=== PATIENT | female | born 1935 | race Caucasian/White ===

== ENCOUNTER 2017-05-03 15:43 | Emergency (ER) | payer OTHER ==
[~2017-05-03] VITALS: Ht 157.5 cm; Wt 136.1 kg
[~2017-05-03 15:43] MED LIST: ACETAMINOPHEN325 M1 PO; AFRIN15 ML NS; AMLODIPINE BESY10 MG PO; DUONEB 2.5-0.5 M3 ML INH; K-DUR 20 MEQ T20 MEQ PO; KEFLEX500 MG PO; LASIX 40 MG TAB40 M1 PO; LEVAQUIN 250 M250 MG PO; LEVOTHYROXINE 0.1 MG PO; LITHIUM CARBON150 MG PO; METOPROLOL SUCC50 MG PO; PANTOPRAZOLE SO40 M1 PO; PREDNISONE 10 M10 MG PO; TRAZODONE HCL50 MG PO; VITAMIN D2000 UNIT PO
[2017-05-03] MEDS ORDERED: ULTRAM50 MG PO (17:56)
[2017-05-03] MEDS ORDERED: NAPROSYN500 MG PO (17:56)
[2017-05-03 20:22] VITALS: BP 128/71
[2017-07-08] MEDS ORDERED: PROTONIX 20 MG20 M1 PO (15:46)
[2017-07-08] MEDS ORDERED: CLEOCIN HCL150 MG PO (15:47)
[2017-07-08] MEDS ORDERED: VITAMIN B-12500 MCG PO (15:47)
[2017-07-11] MEDS ORDERED: KEFLEX500 M1 PO (12:54)
[2017-07-18] MEDS ORDERED: RESTORIL7.5 MG PO (12:26)
[2017-07-18] MEDS ORDERED: TRILEPTAL 300300 MG PO (12:26)
[2017-07-18] MEDS ORDERED: CEFUROXIME500 MG PO (12:26)
[2017-07-18] MEDS ORDERED: MIRALAX17 GM PO (12:26)
[2017-10-03] MEDS ORDERED: PREDNISONE 10 M10 MG PO (13:38)
[2017-10-03] MEDS ORDERED: LEVAQUIN 750 M750 MG PO (13:41)
[2017-11-01] MEDS ORDERED: EYE HEALTH ADU1 EACH PO (16:15)
== END 2017-05-03 20:05 | disposition home or self-care (01) ==
LOC: ER 15:43
DX: M25.572 Pain in left ankle and joints of left foot (principal); E03.9 Hypothyroidism, unspecified; I50.9 Heart failure, unspecified; Z88.0 Allergy status to penicillin; Z88.2 Allergy status to sulfonamides

== ENCOUNTER 2017-05-16 11:29 | Inpatient (IN) | payer OTHER ==
[~2017-05-16] VITALS: Ht 157.5 cm; Wt 136.2 kg
--- NOTE | ~2017-05-16 | EKG ---
[address] [place] [address] ELECTROCARDIOGRAM REPORT Name: YUNIOR BEGUM Room #: 201-P ADM IN M.R.#: [id number] Admission: 05/16/17 Attend Phys: Rudy Whitfield MD Discharge: Date of : 31 Report #: [id number] THIS REPORT FOR: //name// [facility] ED Test Date: 2017-05-16 Test Time: 12:20:26 Pat Name: YUNIOR BEGUM Department: Room: 201 Gender: F Logistics Supervisor: TAI : 1935 Requested By: Kelvin Arteaga Order Number: [id number] MD: Neil Garrido Measurements Intervals [place] Rate: 149 P: OK: QRS: 66 QRSD: 94 T: -68 QT: 294 QTc: 463 Interpretive Statements Atrial fibrillation with rapid V-rate Paired ventricular premature complexes Low voltage, precordial leads Nonspecific ST and T wave abnormality Compared to ECG 03/27/2016 13:48:34 Atrial fibrillation has replaced sinus rhythm Electronically Signed On 05-16-2017 17:41:18 CDT by Neil Garrido [email or web address] <ELECTRONICALLY SIGNED> By: Neil Garrido MD, [facility] 05/16/17 1741 1220 1220 Neil Garrido MD, [facility] /EPI
--- NOTE | ~2017-05-16 | 2DMMODE ---
[facility] [address] [place] [address] 2 D/M-MODE ECHOCARDIOGRAM Name: YUNIOR BEGUM Room #: 170-11 ADM IN .R.#: [id number] Admission: 05/16/17 Attend Phys: Rudy Whitfield MD Discharge: Date of : 31 Date of Service: 05/16/17 1543 Report #: [id number] THIS REPORT FOR: //name// APPROVED REPORT Study performed: 05/16/2017 14:43:34 EXAM: Comprehensive 2D, Doppler, and color-flow Echocardiogram Patient Location: ER Room #: 201 Status: routine BSA: 2.27 HR: 93 bpm BP: 146/61 mmHg Rhythm: NSR Other Information Study Quality: Fair Indications History of Afib. Echo Enhancing Agent Indication: Endocardial border delineation Agent(s) / Amount(s) Used: Optison 4 cc 2D Dimensions RVDd: 33.01 mm LVEF(%): 52.30 (>50%) IVSd: 11.05 (7-11mm) LVOT Diam: 19.07 (18-24mm) LVDd: 43.85 mm PWd: 10.83 (7-11mm) LVDs: 32.17 (25-40mm) Aortic Root: 29.70 mm Gurrola's LVEF: 52.30 % Volumes Left Atrial Volume (Systole) Single Plane 4CH: 53.98 mL Single Plane 2CH: 72.20 mL Aortic Valve AoV Peak J Carlos.: 2.28 m/s AO Peak Gr.: 20.82 mmHg LVOT Max P.04 mmHg AO Mean Gr.: 12.11 mmHg AO V2 Mean: 1.69 m/s LVOT Max V: 1.12 m/s AO V2 VTI: 42.68 cm [facility] [place] [address] 2 D/M-MODE ECHOCARDIOGRAM Name: YUNIOR BEGUM Room #: 170[facility] ADM IN .R.#: [id number] Admission: 05/16/17 Attend Phys: Rudy Whitfield MD Discharge: Date of : 31 Date of Service: 05/16/17 1543 Report #: [id number] RUSSELL Vmax: 1.40 cm2 Mitral Valve E/A Ratio: 0.8 MV Decel. Time: 269.22 ms MV E Max J Carlos.: 0.81 m/s MV A J Carlos.: 1.06 m/s MV PHT: 78.07 ms IVRT: 92.27 ms Pulmonary Valve PV Peak J Carlos.: 1.27 m/s PV Peak Gr.: 6.45 mmHg Pulmonary Vein P Vein S: 0.57 m/s P Vein A: 0.27 m/s P Vein D: 0.31 m/s P Vein A Dur.: 93.4 msec P Vein S/D Ratio: 1.84 Tricuspid Valve TR Peak J Carlos.: 2.32 m/s RAP Estimate: 5.00 mmHg TR Peak Gr.: 21.51 mmHg PA Pressure: 27.00 mmHg Left Ventricle The left ventricle is normal size. Regional wall motion is not well visualized but grossly normal. Borderline concentric left ventricular hypertrophy. Left ventricular systolic function is normal. LVEF is 60-65%. Mild diastolic dysfunction is present (impaired relaxation pattern). Right Ventricle The right ventricle is normal size. The right ventricular systolic function is normal. Atria Left atrium appears mildly dilated. Right atrium is at the upper limits of normal. Right atrium is small. Aortic Valve The aortic valve is not well visualized but appears calcified. Velocities indicate mild arotic stenosis with a peak pressure gradient of 21mmHg and a mean of 12mmHg. Mitral Valve Mitral valve leaflets are mildly calcified. Mild mitral annular calcification. Mild mitral regurgitation. No evidence of mitral valve [address] [address] 2 D/M-MODE ECHOCARDIOGRAM Name: YUNIOR BEGUM Room #: [facility] ADM IN [facility]#: [id number] Admission: 05/16/17 Attend Phys: Rudy Whitfield MD Discharge: Date of : 33 Date of Service: 05/16/17 1543 Report #: [id number] stenosis. Pulmonic Valve The pulmonary valve is normal in structure. Trace pulmonic regurgitation. Estimated PAP is 25-30mmHg. Great Vessels The aortic root is normal in size. Ascending aorta is not well visualized. IVC is normal in size and collapses >50% with inspiration. Pericardium Trace to small pericardial fluid noted anteriorly. <Conclusion> The left ventricle is normal size. LVEF is 60-65%. Left atrium appears mildly dilated. The aortic valve is not well visualized but appears calcified. Velocities indicate mild arotic stenosis with a peak pressure gradient of 21mmHg and a mean of 12mmHg. Mitral valve leaflets are mildly calcified. Mild mitral annular calcification. Mild mitral regurgitation. The pulmonary valve is normal in structure. Trace pulmonic regurgitation. Estimated PAP is 25-30mmHg. Trace to small pericardial fluid noted anteriorly. <ELECTRONICALLY SIGNED> By: Leon Holliday MD 05/16/17 1543 1543 1543 Leon Holliday MD /INF
[~2017-05-16 11:29] MED LIST changes: +NAPROSYN500 MG PO; +ULTRAM50 MG PO
[2017-05-16 11:34] VITALS: BP 148/73
[2017-05-16 12:44] LABS: HEMATOCRIT 44.9 % (37.0-47.0); HEMOGLOBIN 14.8 gm/dL (12.0-15.0); MCH 29.3 pg (26.0-34.0); MCHC 33.1 g/dL (28.0-37.0); MCV 88.5 fL (80.0-100.0); PLATELET COUNT 262 thou/uL (150-400); RBC 5.07 mil/uL (4.20-5.00); RDW 15.6 % (10.5-14.5); WBC 8.1 thou/uL (4.0-11.0)
[2017-05-16 12:54] LABS: CALCIUM 10.1 mg/dL (8.5-10.1); CREATININE 0.9 mg/dL (0.6-1.0); POTASSIUM 3.8 mmol/L (3.5-5.1)
[2017-05-16 13:01] LABS: ALBUMIN 2.5 g/dL (3.4-5.0); TOTAL BILIRUBIN 0.6 mg/dL (<0.1-1.0); TOTAL PROTEIN 7.2 g/dL (6.4-8.2)
[2017-05-16 13:17] LABS: MAGNESIUM 1.7 mg/dL (1.8-2.4); TROPONIN-I < 0.04 ng/mL (<0.06)
[2017-05-16 13:25] LABS: ATYPICAL LYMPHS 1 %
[2017-05-16 13:27] LABS: ABSOLUTE NEUTROPHILS 5.9 thou/uL (1.4-8.2)
[2017-05-16 14:04] VITALS: BP 146/61
[2017-05-16 15:00] LABS: HDL CHOLESTEROL 43 mg/dL (>40); TRIGLYCERIDE 117 mg/dL (<150); VLDL 23 mg/dL (<40)
[2017-05-16 15:25] LABS: FOLIC ACID 12.9 ng/mL (8.6-58.9)
[2017-05-16 15:34] LABS: CHOLESTEROL 224 mg/dL (<200); TC:HDL 5.2 Ratio (Not establshd)
[2017-05-16 15:35] LABS: LDL CHOLESTEROL 158 mg/dL (<100)
[2017-05-16 16:08] VITALS: BP 146/61
[2017-05-16 19:10] VITALS: BP 109/56
[2017-05-17 03:14] LABS: GLYCOHEMOGLOBIN (HGB A1C) 5.9 % (4.8-5.6)
[2017-05-17 05:23] VITALS: BP 116/60
[2017-05-17 07:41] VITALS: BP 98/57
[2017-05-17 12:03] VITALS: BP 116/57
[2017-05-17 15:14] VITALS: BP 123/57
[2017-05-17 16:03] VITALS: BP 123/57
[2017-05-17 19:16] VITALS: BP 98/42
[2017-05-18 03:52] LABS: HEMATOCRIT 37.7 % (37.0-47.0); MCH 29.1 pg (26.0-34.0); MCHC 33.2 g/dL (28.0-37.0); MCV 87.8 fL (80.0-100.0); RBC 4.29 mil/uL (4.20-5.00); RDW 15.2 % (10.5-14.5); WBC 5.4 thou/uL (4.0-11.0)
[2017-05-18 03:57] LABS: HEMOGLOBIN 12.5 gm/dL (12.0-15.0)
[2017-05-18 04:10] LABS: CALCIUM 9.5 mg/dL (8.5-10.1); CREATININE 0.8 mg/dL (0.6-1.0); POTASSIUM 4.1 mmol/L (3.5-5.1)
[2017-05-18 04:24] VITALS: BP 113/71
[2017-05-18 07:15] VITALS: BP 122/61
[2017-05-18 11:40] VITALS: BP 133/72
[2017-05-18 17:21] VITALS: BP 133/72
[2017-05-18 19:50] VITALS: BP 125/57
[2017-05-19 04:10] LABS: HEMATOCRIT 38.3 % (37.0-47.0); HEMOGLOBIN 12.6 gm/dL (12.0-15.0); MCH 29.4 pg (26.0-34.0); MCHC 32.9 g/dL (28.0-37.0); MCV 89.2 fL (80.0-100.0); RBC 4.3 mil/uL (4.20-5.00); RDW 15.1 % (10.5-14.5); WBC 5.7 thou/uL (4.0-11.0)
[2017-05-19 04:15] LABS: CALCIUM 9.5 mg/dL (8.5-10.1); CREATININE 0.8 mg/dL (0.6-1.0); POTASSIUM 4.1 mmol/L (3.5-5.1)
[2017-05-19 04:27] VITALS: BP 139/64
[2017-05-19 07:10] VITALS: BP 137/68
[2017-05-19 11:35] VITALS: BP 151/81
[2017-05-19 15:30] VITALS: BP 128/66
[2017-05-19 18:47] VITALS: BP 144/79
[2017-05-20 04:38] VITALS: BP 126/66
[2017-05-20 07:04] VITALS: BP 125/62
[2017-05-20 10:57] VITALS: BP 139/66
[2017-05-20 15:20] VITALS: BP 131/52
[2017-05-20 19:45] VITALS: BP 138/68
[2017-05-21 04:23] LABS: HEMOGLOBIN 12.1 gm/dL (12.0-15.0); MCH 29.2 pg (26.0-34.0); MCHC 32.8 g/dL (28.0-37.0); RBC 4.16 mil/uL (4.20-5.00); RDW 15.3 % (10.5-14.5); WBC 4.9 thou/uL (4.0-11.0)
[2017-05-21 04:33] LABS: CALCIUM 9.9 mg/dL (8.5-10.1); CREATININE 0.7 mg/dL (0.6-1.0); POTASSIUM 4.1 mmol/L (3.5-5.1)
[2017-05-21 04:40] VITALS: BP 138/75
[2017-05-21 07:25] VITALS: BP 113/55
[2017-05-21 10:59] VITALS: BP 143/80
[2017-05-21] MEDS ORDERED: ELIQUIS5 MG PO (14:30)
[2017-05-21] MEDS ORDERED: CARDIZEM CD240 MG PO (14:32)
[2017-05-21] MEDS ORDERED: PROTONIX 20 MG20 MG PO (14:32)
[2017-07-08] MEDS ORDERED: PROTONIX 20 MG20 M1 PO (15:46)
[2017-07-08] MEDS ORDERED: VITAMIN B-12500 MCG PO (15:47)
[2017-07-08] MEDS ORDERED: CLEOCIN HCL150 MG PO (15:47)
[2017-07-11] MEDS ORDERED: KEFLEX500 M1 PO (12:54)
[2017-07-18] MEDS ORDERED: MIRALAX17 GM PO (12:26)
[2017-07-18] MEDS ORDERED: CEFUROXIME500 MG PO (12:26)
[2017-07-18] MEDS ORDERED: TRILEPTAL 300300 MG PO (12:26)
[2017-07-18] MEDS ORDERED: RESTORIL7.5 MG PO (12:26)
[2017-10-03] MEDS ORDERED: PREDNISONE 10 M10 MG PO (13:38)
[2017-10-03] MEDS ORDERED: LEVAQUIN 750 M750 MG PO (13:41)
[2017-11-01] MEDS ORDERED: EYE HEALTH ADU1 EACH PO (16:15)
== END 2017-05-21 17:00 | DRG 308 ==
LOC: ER 11:29 → 2N 12:59 → EROBS 12:59 → 2N 15:48
PROVIDERS: Emergency Medicine; Hospitalist; Nurse Practitioner
PROC: B24BZZ4 Ultrasonography of Heart with Aorta, Transesophageal (ICD-10-PCS; principal; 2017-05-16)
DX: I48.0 Paroxysmal atrial fibrillation (principal); E43 Unspecified severe protein-calorie malnutrition; I50.30 Unspecified diastolic (congestive) heart failure; Z68.43 Body mass index [BMI] 50.0-59.9, adult; D68.59 Other primary thrombophilia; E03.9 Hypothyroidism, unspecified; F41.9 Anxiety disorder, unspecified; F31.9 Bipolar disorder, unspecified; M25.571 Pain in right ankle and joints of right foot; M17.11 Unilateral primary osteoarthritis, right knee; E78.5 Hyperlipidemia, unspecified; G47.33 Obstructive sleep apnea (adult) (pediatric); I11.0 Hypertensive heart disease with heart failure; J44.9 Chronic obstructive pulmonary disease, unspecified; I35.0 Nonrheumatic aortic (valve) stenosis; E66.9 Obesity, unspecified; E83.42 Hypomagnesemia; E87.6 Hypokalemia; Z99.81 Dependence on supplemental oxygen; Z90.49 Acquired absence of other specified parts of digestive tract; Z99.3 Dependence on wheelchair; Z86.718 Personal history of other venous thrombosis and embolism; Z79.899 Other long term (current) drug therapy; Z88.0 Allergy status to penicillin; Z88.2 Allergy status to sulfonamides; Z82.49 Family history of ischemic heart disease and other diseases of the circulatory system
CPT/HCPCS: 10194

== ENCOUNTER 2017-06-11 12:08 | Inpatient (IN) | payer OTHER ==
[~2017-06-11] VITALS: Ht 157.5 cm; Wt 134.7 kg
--- NOTE | ~2017-06-11 | EKG ---
[address] [place] [address] ELECTROCARDIOGRAM REPORT Name: YUNIOR BEGUM Room #: 360-P ADM IN M.R.#: [id number] Admission: 06/11/17 Attend Phys: Stephne Quinteros MD Discharge: Date of : 33 Report #: [id number] THIS REPORT FOR: //name// [facility] ED Test Date: 2017-06-11 Test Time: 13:05:29 Pat Name: YUNIOR BEGUM Department: Room: 360 Gender: F Disability Rater: SAFIA : 1935 Requested By: Shantel Beckford Order Number: [id number] MD: Neil Garrido Measurements Intervals [place] Rate: 85 P: 49 [place]: 188 QRS: 50 QRSD: 101 T: 19 QT: 393 QTc: 468 Interpretive Statements Sinus rhythm Low voltage, precordial leads Compared to ECG 05/16/2017 12:20:26 Atrial fibrillation no longer present Electronically Signed On 06-11-2017 16:43:59 CDT by Neil Garrido [email or web address] <ELECTRONICALLY SIGNED> By: Neil Garrido MD, [facility] 06/11/17 1643 1305 1305 Neil Garrido MD, FAC /EPI
--- NOTE | ~2017-06-11 | HC ---
[facility] [place] [address] CONSULTATION Name: YUNIOR BEGUM Room #: 462-P [facility] IN M.R.#: [id number] Admission: 06/11/17 Attend Phys: Stephen Quinteros MD Discharge: 06/18/17 Date of : 33 Report #: [id number] THIS REPORT FOR: //name// CC: Stephen Sanders DATE OF SERVICE: 06/11/2017 HISTORY OF PRESENT ILLNESS: This is an 82-year-old female patient who was evaluated by me for acute onset of right hemianopsia. She indicates she was reading and then she noticed that she has severe visual disturbances. She is in a rehab facility at the moment. They notice associated facial palsy. That portion of the symptoms have become better. She did not have this kind of symptom before. Review of systems indicates that this patient was recently admitted to this hospital, she was diagnosed with atrial fibrillation. She was started on anticoagulation with Eliquis. She has been taking that faithfully. She does have a history of DVT. She had a history of swelling in the lower extremities. She had some right leg pain and she has been unable to ambulate. How long is going on is not clear. The best I understand it is of a few months' duration. She also has some difficulty with shortness of breath. This was her relevant 14-point review of system. She at one time had some pulmonary infiltrate. One of the record says she had some acute psychosis and hypercapnia. She is not complaining of any active ENT, cardiac, respiratory, GI, , constitutional, dermatological, hematological, psychiatric, throat, allergic symptom associated with present symptomatology. PAST MEDICAL HISTORY: Positive for atrial fibrillation for which she is anticoagulated. FAMILY HISTORY: Negative for early age stroke. SOCIAL HISTORY: She has a supportive family. Presently, she is in the rehab and that is where she was when the symptoms were noticed. PHYSICAL EXAMINATION: Indicate that she is alert, she is responsive, she can follow simple commands. Her memory looks intact. Her speech, concentration, fund of knowledge looks intact. Cranial nerve examination 2-12 indicate dense right hemianopsia. It is mostly in the right eye, but it is the right hemianopsia. She does not appear to have any facial palsy or any other cranial nerve abnormality. Neuromuscular examinations indicate she is profoundly weak in both lower extremities. Apparently, this is going on for a few months. She indicates that touch is there, but she feels different. Her reflexes could not be elicited and the tone actually looks diminished. I tried to look at the fundus, but could not look at the fundus very well. There is no meningeal sign. There is no carotid bruit. She is moderately obese individual who does not have any dysmorphic features of eyes, ears and face. Her vision and hearing [address] [address] CONSULTATION Name: YUNIOR BEGUM Room #: 462-P DIS IN M.R.#: [id number] Admission: 06/11/17 Attend Phys: Stephen Quinteros MD Discharge: 06/18/17 Date of : 33 Report #: [id number] looks adequate. Cardiac examination is positive for paroxysmal atrial fibrillation, no respiratory difficulty or rhonchi was noticed. Her pulses are difficult to feel. She is not able to walk. Her vital signs indicate a blood pressure of 125/65, oxygen saturation 92%, respirations 16, pulse is 87. Her labs indicate that her sodium is 141. Her CT scan was mostly unremarkable, but they have indicated some brainstem abnormality, which need to be confirmed by MRI. IMPRESSION: 1. Left occipital lobe stroke. This need to be confirmed with MRI, but if it is confirmed it looks like it came in spite of the patient being on anticoagulation. That will indicate that we need some further workup. This patient is not a set up for endocarditis, but she will need some further workup and may be even SHAHNAZ to rule out an outside chance for that. 2. I am concerned with the weakness in the lower extremities. We need to do the workup for the stroke. If brain stem lesion is there, which can explain the weakness in the lower extremities, then that is fine. Otherwise, she needs further workup in that regard. My feeling is that this weakness is separate and we need to workup for spine cause as well as neuropathy. Stroke take priority and we will do that workup first and then I think she needs workup for the spine as well as for neuropathy if that workup is unremarkable. Thank you very much for this referral. The patient was discussed with Dr. Beckford, Emergency Room physician multiple times and I talked to the family in great detail. More than 50 minutes of time was spent taking care of this patient today and majority of that time was spent counseling the family and coordinating this patient's care. <ELECTRONICALLY SIGNED> By: Sylvain Carbajal MD 06/19/17 1957 1544 182 Sylvain Carbajal MD /nt
--- NOTE | ~2017-06-11 | HC ---
[facility] [place] [address] CONSULTATION Name: YUNIOR BEGUM Room #: 462-P [facility] IN M.R.#: [id number] Admission: 06/11/17 Attend Phys: Stephen Quinteros MD Discharge: 06/18/17 Date of : 33 Report #: [id number] THIS REPORT FOR: //name// CC: Stephen Espinozakinza DATE OF SERVICE: 06/12/2017 HISTORY OF PRESENT ILLNESS: An 82-year-old white female who gives a history of worsening bilateral lower extremity burning pain. She was having difficulty with any type of movement or mobility because of the burning pain. She had been living at home with her son and his significant other. She essentially became bedbound and has been bed bound since March. Stay in bed, using the bed berry. She was previously admitted to [facility] and was diagnosed with atrial fibrillation and noted to have lower extremity weakness. She had some right ankle and knee pain and was seen by Orthopedics and they diagnosed with right knee degenerative arthritis of a possible corticosteroid injection. The patient was nonambulatory during that stay and the goal is to try to hopefully maximize getting up with a sliding board. She was transferred to [facility] for skilled level therapies. While at [facility], she notes that they were utilizing a mechanical lift to get her back and forth and in and out of bed and she was up in the wheelchair. The plan was to try to discharge her back home with son and his significant other at a wheelchair/Farzaneh lift level. Prior to actually being discharged from [facility], she ended up having visual problems and was readmitted to [facility]. MRI scan has not been consistent with a left occipital lobe CVA. Neurology is involved. Dr. Carbajal noted her significant weakness of the lower extremities and she is currently under Neurology evaluation. We are seeing her in rehabilitation medicine consultation. PAST MEDICAL HISTORY: Chronic atrial fibrillation, depression, bipolar disorder, CHF, pneumonia, COPD, history of DVT. She has the bilateral lower extremity pain. There are medical records of right leg pain, unable to ambulate. She has history of significant exogenous obesity. MEDICATIONS: Please see the full medication listing. ALLERGIES: PENICILLIN AND SULFA. HABITS: No history of tobacco, alcohol abuse. FAMILY HISTORY: Heart disease, vascular disease. SOCIAL HISTORY: Well delineated above. REVIEW OF SYSTEMS: No current complaints of chest pain, shortness of breath or [facility] [address] [place] [address] CONSULTATION Name: YUNIOR BEGUM Room #: 462-P [facility] IN M.R.#: [id number] Admission: 06/11/17 Attend Phys: Stephen Quinteros MD Discharge: 06/18/17 Date of : 33 Report #: [id number] abdominal discomfort. PHYSICAL EXAMINATION: An obese. GENERAL: An 82-year-old white female in no obvious distress. She is alert, pleasant. HEENT: Appeared to be benign except for her visual persaud. VITAL SIGNS: Temperature 98.3, pulse 79, respirations 17, blood pressure 129/63. EXTREMITIES: She does have a definite homonymous hemianopsia on testing with confrontation. This is a dense right hemianopsia. No facial palsy. Upper extremities functional range of motion, strength is grade 4- to 3+/5. DTRs are trace to 1. Lower extremities, no focal calf swelling. I would grade her strength at a 3 to -3 proximally and more of a grade 3+ distally. She has been max assist of 2 to 3 to try to move up in bed. ASSESSMENT: An 82-year-old white female with the following problem list: 1. Newly diagnosed left occipital lobe cerebrovascular accident. 2. Right homonymous hemianopsia. 3. Significant bilateral lower extremity weakness. Premorbidly bed/wheelchair bound utilizing the Farzaneh lift. 4. Right knee degenerative arthritis. 5. Chronic atrial fibrillation. 6. Bipolar disorder. 7. Pneumonia. 8. Exogenous obesity. PLAN: 1. Neurology consultation is underway with the evaluation. Therapies are to reevaluate her current function. Insurance will need to be checked regarding rehab therapy issues as she further medically stabilizes. <ELECTRONICALLY SIGNED> By: Moustapha Bray MD 06/19/17 1504 1305 1909 Moustapha Bray MD /[facility]
[~2017-06-11 12:08] MED LIST changes: +CARDIZEM CD240 MG PO; +ELIQUIS5 MG PO; +PROTONIX 20 MG20 MG PO
[2017-06-11 12:09] VITALS: BP 125/65
[2017-06-11 12:43] LABS: HEMATOCRIT 36.9 % (37.0-47.0); HEMOGLOBIN 12.1 gm/dL (12.0-15.0); MCHC 32.9 g/dL (28.0-37.0); MCV 88.3 fL (80.0-100.0); PLATELET COUNT 208 thou/uL (150-400); RBC 4.18 mil/uL (4.20-5.00); WBC 6.9 thou/uL (4.0-11.0)
[2017-06-11 12:49] LABS: CALCIUM 9.7 mg/dL (8.5-10.1); CREATININE 0.9 mg/dL (0.6-1.0); POTASSIUM 3.9 mmol/L (3.5-5.1)
[2017-06-11] MEDS ORDERED: TYLENOL325 MG PO (12:53)
[2017-06-11 12:57] LABS: APTT 29.5 Seconds (24.5-32.8); PROTIME 10.3 Seconds (9.3-11.4)
[2017-06-11 13:07] LABS: ABSOLUTE NEUTROPHILS 3.5 thou/uL (1.4-8.2); PLATELET ESTIMATE NORMAL
[2017-06-11 15:52] VITALS: BP 125/65
[2017-06-11 17:16] VITALS: BP 125/65
[2017-06-11 18:09] VITALS: BP 146/69
[2017-06-11 19:45] VITALS: BP 120/58
[2017-06-11 23:25] VITALS: BP 113/52
[2017-06-12] VITALS (8 sets, daily range): BP systolic 95–137; BP diastolic 31–69
[2017-06-12 05:36] LABS: CALCIUM 9.5 mg/dL (8.5-10.1); CREATININE 0.9 mg/dL (0.6-1.0); POTASSIUM 4.2 mmol/L (3.5-5.1)
[2017-06-12 05:44] LABS: HEMATOCRIT 35.8 % (37.0-47.0); HEMOGLOBIN 11.8 gm/dL (12.0-15.0); MCH 29.3 pg (26.0-34.0); RBC 4.03 mil/uL (4.20-5.00); RDW 16.1 % (10.5-14.5); WBC 7.2 thou/uL (4.0-11.0)
[2017-06-13 03:07] VITALS: BP 104/56
[2017-06-13 06:26] LABS: TSH 5.99 uIU/mL (0.358-3.740)
[2017-06-13 07:28] VITALS: BP 114/65
[2017-06-13 11:22] VITALS: BP 138/65
[2017-06-13 15:39] VITALS: BP 132/59
[2017-06-13 17:18] VITALS: BP 133/71
[2017-06-13 19:57] VITALS: BP 131/50
[2017-06-14 03:56] VITALS: BP 122/48
[2017-06-14 07:01] LABS: CHOLESTEROL 206 mg/dL (<200); HDL CHOLESTEROL 52 mg/dL (>40); LDL CHOLESTEROL 139 mg/dL (<100); TRIGLYCERIDE 78 mg/dL (<150); VLDL 16 mg/dL (<40)
[2017-06-14 08:11] VITALS: BP 153/72
[2017-06-14] MEDS ORDERED: ASPIRIN325 PO (08:25)
[2017-06-14] MEDS ORDERED: LIPITOR10 MG PO (08:25)
[2017-06-14 15:10] VITALS: BP 151/69
[2017-06-14 19:12] VITALS: BP 117/51
[2017-06-15 03:11] VITALS: BP 131/44
[2017-06-15 07:57] VITALS: BP 149/61
[2017-06-15 15:37] VITALS: BP 142/64
[2017-06-15 19:00] VITALS: BP 131/60
[2017-06-16 04:11] VITALS: BP 133/69
[2017-06-16 16:20] VITALS: BP 131/64
[2017-06-16 19:33] VITALS: BP 133/59
[2017-06-17 03:00] VITALS: BP 120/56
[2017-06-17 08:00] VITALS: BP 133/74
[2017-06-17 16:00] VITALS: BP 172/73
[2017-06-17 20:27] VITALS: BP 146/83
[2017-06-18 03:25] VITALS: BP 118/48
[2017-06-18 08:25] VITALS: BP 153/73
[2017-06-18 15:59] VITALS: BP 152/72
== END 2017-06-18 19:20 | DRG 64 ==
LOC: ER 12:08 → EROBS 14:05 → 3W 14:05 → 4W 06-13 16:45
PROVIDERS: Emergency Medicine; Hospitalist; Psychiatry & Neurology Neuromuscular Medicine
DX: I63.9 Cerebral infarction, unspecified (principal); J18.9 Pneumonia, unspecified organism; I50.30 Unspecified diastolic (congestive) heart failure; Z68.43 Body mass index [BMI] 50.0-59.9, adult; H53.461 Homonymous bilateral field defects, right side; J44.0 Chronic obstructive pulmonary disease with (acute) lower respiratory infection; E03.9 Hypothyroidism, unspecified; F31.9 Bipolar disorder, unspecified; I48.2 Chronic atrial fibrillation; E66.09 Other obesity due to excess calories; I11.0 Hypertensive heart disease with heart failure; M17.11 Unilateral primary osteoarthritis, right knee; G47.33 Obstructive sleep apnea (adult) (pediatric); M81.0 Age-related osteoporosis without current pathological fracture; Z90.49 Acquired absence of other specified parts of digestive tract; Z98.49 Cataract extraction status, unspecified eye; Z88.0 Allergy status to penicillin; Z88.2 Allergy status to sulfonamides; Z86.718 Personal history of other venous thrombosis and embolism; Z82.49 Family history of ischemic heart disease and other diseases of the circulatory system
CPT/HCPCS: 10045; 10879

== ENCOUNTER 2017-08-13 12:48 | Inpatient (IN) | payer OTHER ==
[~2017-08-13] VITALS: Ht 157.5 cm; Wt 129.4 kg
--- NOTE | ~2017-08-13 | HC ---
[facility] [place] [address] CONSULTATION Name: YUNIOR ROBERTSON Room #: 224-P ADM IN M.R.#: [id number] Admission: 08/13/17 Attend Phys: Stephen Quinteros MD Discharge: Date of : 33 Report #: [id number] THIS REPORT FOR: //name// CC: Stephen Espinozakinza DATE OF SERVICE: 08/15/2017 IDENTIFYING INFORMATION: An 82-year-old female. HISTORY OF PRESENT ILLNESS: This lady has been at [facility] at the independent level of care. She was hospitalized here last month too. She has presented with shortness of breath and tachycardia. She believes there has been some swelling of her lower extremities. She has stopped a large number of the medications that were prescribed during the last hospital stay. She does have an underlying history of bipolar disorder and recalled seeing Dr. Palumbo during the last hospital stay. There is currently some concern about nonadherence and noncompliance. The patient minimizes all of this stating that some of these medications she does not need including the one for her mood disorder and that she has decided to go to correction rehab I believe at [facility]. PAST PSYCHIATRIC HISTORY: There is a history of bipolar affective disorder. I have had the opportunity to review some of Dr. Palumbo's notes that also include I believe some discussion with the patient's son who is a physician. Indeed, the patient does have a history of bipolar disorder, but has not been on medications in some time. She has been on lithium in the past I believe. She refused lithium in part because of concern about also being on Lasix. This is actually not unreasonable and though she did agree to start oxcarbazepine, she stopped taking it shortly after discharge. PAST MEDICAL HISTORY: Hypothyroid, gastroesophageal reflux disease, hyperlipidemia, pain disorder, obesity. SOCIAL HISTORY: Currently living alone. She has been at the independent living level of care, but is now agreeable to get some correction rehab. She talks quite a bit about the accomplishments of her and, I believe, her late . They apparently started [employer] which has become a fairly significant charitable organization in the [place] area. She jumps from topic to topic, talking about her family, upcoming ophthalmologic procedure, the preacher on television, etc. CURRENT MEDICATIONS: Include levofloxacin 500 daily, aspirin 325 daily, diltiazem 240 daily, levothyroxine 100 mcg daily, Eliquis 5 mg daily. LABORATORY DATA: Sodium 138, potassium 4.5, chloride 104, BUN 9, creatinine [address] [address] CONSULTATION Name: YUNIOR ROBERTSON Room #: 224-P [facility] IN M.R.#: [id number] Admission: 08/13/17 Attend Phys: Stephen Quinteros MD Discharge: Date of : 33 Report #: [id number] 0.7. MENTAL STATUS EXAM: female, casually dressed, elevated mood, pressured speech, circumstantial, tangential thought process. No suicidal ideation, no homicidal ideation, no hallucinations. Seems to have overvalued ideas, but not delusions proper, insight and judgment somewhat limited. DIAGNOSIS: Bipolar affective disorder. RECOMMENDATIONS: The patient has told me that her son is her healthcare power of vault service mechanic and she herself has the paperwork it turns out. It is difficult to understand how much the patient is actually processing because of the fact that she jumps from topic to topic. She is opposed to taking a mood stabilizer at this time, which is unfortunate because it could help quite a bit. She declined when I offered to call her son, but son is the healthcare power of vault service mechanic and there are concerns about the patient's wellbeing and likely causing reason to activate the power of vault service mechanic. I do not feel we need a release of information or her permission to talk to her son. I do see that she is having trouble making decisions, staying on track which could affect the processing of complex medical decisions. Would be interesting to note if she was having trouble with some of the behavioral issues that were noted when Dr. Palumbo talked to the patient's son, Dr. Ben Robertson, that included her having lots of different people in her house, spending a lot of money, etc. By: 1558 2258 Jaswinder Sheldon MD /nt
--- NOTE | ~2017-08-13 | EKG ---
[address] [employer] [place] [address] ELECTROCARDIOGRAM REPORT Name: YUNIOR BEGUM Room #: 170-7 ADM IN M.R.#: [id number] Admission: 08/13/17 Attend Phys: Stephen Quinteros MD Discharge: Date of : 33 Report #: [id number] THIS REPORT FOR: //name// [facility] ED Test Date: 2017-08-13 Test Time: 12:56:38 Pat Name: YUNIOR BEGUM Department: Room: Gender: F Cosmetician: : 1935 Requested By: Kelvin Arteaga Order Number: [id number] MD: Neil Garrido Measurements Intervals [place] Rate: 127 P: 178 [place]: 144 QRS: 51 QRSD: 96 T: 13 QT: 322 QTc: 469 Interpretive Statements Atrial flutter with 2:[address] and T wave abnormality Compared to ECG 07/08/2017 17:05:16 Atrial flutter is now present Electronically Signed On 08-13-2017 16:04:56 CDT by Neil Garrido [email or web address] <ELECTRONICALLY SIGNED> By: Neil Garrido MD, [facility] 08/13/17 1604 1256 1256 Neil Garrido MD, [facility] /EPI
[2017-08-13 12:48] VITALS: BP 99/64
[~2017-08-13 12:48] MED LIST changes: +ASPIRIN325 PO; +CEFUROXIME500 MG PO; +CLEOCIN HCL150 MG PO; +KEFLEX500 M1 PO; +LIPITOR10 MG PO; +MIRALAX17 GM PO; +PROTONIX 20 MG20 M1 PO; +RESTORIL7.5 MG PO; +TRILEPTAL 300300 MG PO; +TYLENOL325 MG PO; +VITAMIN B-12500 MCG PO
[2017-08-13 13:09] LABS: HEMATOCRIT 39.5 % (37.0-47.0); HEMOGLOBIN 13.1 gm/dL (12.0-15.0); MCH 29.9 pg (26.0-34.0); MCHC 33.1 g/dL (28.0-37.0); MCV 90.5 fL (80.0-100.0); PLATELET COUNT 278 thou/uL (150-400); RBC 4.37 mil/uL (4.20-5.00); WBC 5.5 thou/uL (4.0-11.0)
[2017-08-13 13:35] LABS: ANION GAP 10 mmol/L (7-16); BUN 14 mg/dL (7-18); CALCIUM 9.1 mg/dL (8.5-10.1); CHLORIDE 102 mmol/L (98-107); CO2 27 mmol/L (21-32); CREATININE 0.8 mg/dL (0.6-1.0); GLUCOSE 120 mg/dL (74-106); POTASSIUM 4.4 mmol/L (3.5-5.1); SODIUM 139 mmol/L (136-145)
[2017-08-13 13:43] LABS: ABSOLUTE NEUTROPHILS 2.6 thou/uL (1.4-8.2); ALBUMIN 3.2 g/dL (3.4-5.0); PLATELET ESTIMATE NORMAL; SGOT 31 U/L (15-37); SGPT 28 U/L (30-65); TOTAL BILIRUBIN 0.5 mg/dL (<0.1-1.0); TOTAL PROTEIN 6.8 g/dL (6.4-8.2); TROPONIN-I < 0.04 ng/mL (<0.06)
[2017-08-13] MEDS ORDERED: ELIQUIS5 MG PO (15:52)
[2017-08-13] MEDS ORDERED: B12INJ IM (15:52)
[2017-08-13 18:43] VITALS: BP 137/89
[2017-08-13 18:59] VITALS: BP 122/48
[2017-08-13] MEDS ORDERED: SYNTHROID50 MCG PO (20:54)
[2017-08-13 21:27] VITALS: BP 147/69
[2017-08-13 23:55] VITALS: BP 135/75
[2017-08-14 03:35] VITALS: BP 134/66
[2017-08-14 05:18] LABS: HEMATOCRIT 36.7 % (37.0-47.0); HEMOGLOBIN 11.9 gm/dL (12.0-15.0); MCH 30.1 pg (26.0-34.0); MCHC 32.5 g/dL (28.0-37.0); MCV 92.5 fL (80.0-100.0); RBC 3.97 mil/uL (4.20-5.00); RDW 16.3 % (10.5-14.5); WBC 4.9 thou/uL (4.0-11.0)
[2017-08-14 05:37] LABS: CALCIUM 8.9 mg/dL (8.5-10.1); CREATININE 0.7 mg/dL (0.6-1.0); POTASSIUM 4.5 mmol/L (3.5-5.1)
[2017-08-14 08:00] VITALS: BP 147/71
[2017-08-14 16:00] VITALS: BP 108/70
[2017-08-14 19:40] VITALS: BP 128/65
[2017-08-15 04:19] VITALS: BP 112/51
[2017-08-15 08:00] VITALS: BP 126/60; BP 146/72
[2017-08-15 15:56] VITALS: BP 158/76
[2017-08-15 19:51] VITALS: BP 154/71
[2017-08-16 08:48] VITALS: BP 152/79
[2017-08-16] MEDS ORDERED: LASIX 20 MG TAB20 MG PO (15:05)
[2017-08-16] MEDS ORDERED: CARDIZEM CD240 MG PO (15:05)
== END 2017-08-16 18:35 | DRG 177 ==
LOC: ER 12:48 → 4W 14:23 → EROBS 14:23 → 4W 20:15 → SICU 08-15 18:57
PROVIDERS: Emergency Medicine; Hospitalist
DX: J15.6 Pneumonia due to other Gram-negative bacteria (principal); I50.33 Acute on chronic diastolic (congestive) heart failure; J96.21 Acute and chronic respiratory failure with hypoxia; F31.10 Bipolar disorder, current episode manic without psychotic features, unspecified; I48.91 Unspecified atrial fibrillation; E03.9 Hypothyroidism, unspecified; F41.9 Anxiety disorder, unspecified; K21.9 Gastro-esophageal reflux disease without esophagitis; R41.81 Age-related cognitive decline; E78.5 Hyperlipidemia, unspecified; J44.9 Chronic obstructive pulmonary disease, unspecified; Z90.49 Acquired absence of other specified parts of digestive tract; Z86.73 Personal history of transient ischemic attack (TIA), and cerebral infarction without residual deficits; Z79.01 Long term (current) use of anticoagulants; Z79.82 Long term (current) use of aspirin; Z79.899 Other long term (current) drug therapy; Z88.0 Allergy status to penicillin; Z88.2 Allergy status to sulfonamides; Z82.49 Family history of ischemic heart disease and other diseases of the circulatory system
CPT/HCPCS: 10045; 15002

== ENCOUNTER 2017-12-04 22:42 | Inpatient (IN) | payer OTHER ==
[~2017-12-04] VITALS: Ht 157.5 cm; Wt 100.7 kg
--- NOTE | ~2017-12-04 | EKG ---
[address] [address] ELECTROCARDIOGRAM REPORT Name: YUNIOR BEGUM Room #: 213-P ADM IN M.R.#: [id number] Admission: 12/05/17 Attend Phys: Stephen Quinteros MD Discharge: Date of : 31 Report #: [id number] THIS REPORT FOR: //name// [facility] ED Test Date: 2017-12-05 Test Time: 00:54:04 Pat Name: YUNIOR BEGUM Department: Room: 213 Gender: F Employee Placement Specialist: JANA : 1935 Requested By: Kelvin Arteaga Order Number: [id number] MD: Andrew Bryant Measurements Intervals [place] Rate: 86 P: 81 [place]: 200 QRS: 63 QRSD: 99 T: 21 QT: 403 QTc: 482 Interpretive Statements Sinus rhythm Low voltage, precordial leads Baseline wander in lead(s) V1 Compared to ECG 11/01/2017 15:40:46 Low QRS voltage now present Electronically Signed On 12-06-2017 8:11:25 CDT by Andrew Bryant [email or web address] <ELECTRONICALLY SIGNED> By: Andrew Bryant MD 12/06/17 0811 0054 0054 Andrew Bryant MD /EPI
[~2017-12-04 22:42] MED LIST changes: +B12INJ IM; +EYE HEALTH ADU1 EACH PO; +LASIX 20 MG TAB20 MG PO; +LEVAQUIN 750 M750 MG PO; +SYNTHROID50 MCG PO
[2017-12-04 22:43] VITALS: BP 138/69
[2017-12-04 23:23] LABS: HEMATOCRIT 36.4 % (37.0-47.0); HEMOGLOBIN 12.1 gm/dL (12.0-15.0); MCH 29.7 pg (26.0-34.0); MCHC 33.3 g/dL (28.0-37.0); MCV 89.2 fL (80.0-100.0); PLATELET COUNT 304 thou/uL (150-400); RBC 4.08 mil/uL (4.20-5.00); RDW 16.7 % (10.5-14.5); WBC 6.5 thou/uL (4.0-11.0)
[2017-12-04 23:32] LABS: ANION GAP 2 mmol/L (7-16); BUN 20 mg/dL (7-18); CALCIUM 9.7 mg/dL (8.5-10.1); CHLORIDE 100 mmol/L (98-107); CO2 35 mmol/L (21-32); CREATININE 0.8 mg/dL (0.6-1.0); GLUCOSE 109 mg/dL (74-106); POTASSIUM 4.2 mmol/L (3.5-5.1); SODIUM 137 mmol/L (136-145)
[2017-12-04 23:40] LABS: ALBUMIN 2.9 g/dL (3.4-5.0); SGOT 32 U/L (15-37); SGPT 19 U/L (30-65); TOTAL BILIRUBIN 0.9 mg/dL (<0.1-1.0); TOTAL PROTEIN 7.2 g/dL (6.4-8.2); TROPONIN-I <0.06 ng/mL (<0.06)
[2017-12-05] VITALS (7 sets, daily range): BP systolic 98–144; BP diastolic 56–83
[2017-12-05 00:24] LABS: ABSOLUTE NEUTROPHILS 3.5 thou/uL (1.4-8.2)
[2017-12-05 08:24] LABS: PROTIME 10.7 Seconds (9.3-11.4)
[2017-12-06 00:45] VITALS: BP 136/64
[2017-12-06 04:45] VITALS: BP 149/80
[2017-12-06 05:09] LABS: CALCIUM 9.3 mg/dL (8.5-10.1); CREATININE 0.7 mg/dL (0.6-1.0); POTASSIUM 3.9 mmol/L (3.5-5.1)
[2017-12-06 07:30] VITALS: BP 146/87
[2017-12-06 15:11] VITALS: BP 142/74
[2017-12-06 19:50] VITALS: BP 139/76
[2017-12-07 04:45] VITALS: BP 104/51
[2017-12-07 07:15] VITALS: BP 113/55
[2017-12-07 15:55] VITALS: BP 106/43
[2017-12-07 21:51] VITALS: BP 115/60
[2017-12-08 05:48] VITALS: BP 107/40
[2017-12-08 08:05] VITALS: BP 106/42
[2017-12-08 20:35] VITALS: BP 119/52
[2017-12-09 04:45] VITALS: BP 114/48
[2017-12-09 14:55] VITALS: BP 121/60
[2017-12-09 20:30] VITALS: BP 105/50
[2017-12-10 04:45] VITALS: BP 149/79
[2017-12-10 08:04] VITALS: BP 104/60
[2017-12-10 12:13] VITALS: BP 142/74
[2017-12-10 17:18] VITALS: BP 159/86
[2017-12-10 20:18] VITALS: BP 102/49
[2017-12-11 03:24] VITALS: BP 100/55
[2017-12-11 08:04] VITALS: BP 110/57
[2017-12-11 12:10] VITALS: BP 142/74
[2017-12-11 12:11] VITALS: BP 142/74
[2017-12-11 13:29] VITALS: BP 142/74
[2017-12-11 16:59] VITALS: BP 120/59
== END 2017-12-11 18:11 | disposition home health service (06) | DRG 542 ==
LOC: ER 22:42 → EROBS 12-05 02:43 → 2N 12-05 02:43
PROVIDERS: Emergency Medicine; Nurse Practitioner Family; Radiology Diagnostic Radiology
PROC: 5A09357 Assistance with Respiratory Ventilation, Less than 24 Consecutive Hours, Continuous Positive Airway Pressure (ICD-10-PCS; principal; 2017-12-10)
PROC: 5A09357 Assistance with Respiratory Ventilation, Less than 24 Consecutive Hours, Continuous Positive Airway Pressure (ICD-10-PCS; 2017-12-11)
DX: M48.56XA Collapsed vertebra, not elsewhere classified, lumbar region, initial encounter for fracture (principal); E43 Unspecified severe protein-calorie malnutrition; I26.99 Other pulmonary embolism without acute cor pulmonale; I50.30 Unspecified diastolic (congestive) heart failure; Z68.41 Body mass index [BMI] 40.0-44.9, adult; E03.9 Hypothyroidism, unspecified; F41.9 Anxiety disorder, unspecified; F31.9 Bipolar disorder, unspecified; J44.9 Chronic obstructive pulmonary disease, unspecified; I48.91 Unspecified atrial fibrillation; I11.0 Hypertensive heart disease with heart failure; K46.9 Unspecified abdominal hernia without obstruction or gangrene; G47.33 Obstructive sleep apnea (adult) (pediatric); K43.9 Ventral hernia without obstruction or gangrene; E66.01 Morbid (severe) obesity due to excess calories; M43.18 Spondylolisthesis, sacral and sacrococcygeal region; M43.16 Spondylolisthesis, lumbar region; E11.649 Type 2 diabetes mellitus with hypoglycemia without coma; Z90.49 Acquired absence of other specified parts of digestive tract; Z98.82 Breast implant status; Z98.49 Cataract extraction status, unspecified eye; Z88.0 Allergy status to penicillin; Z88.2 Allergy status to sulfonamides; Z82.49 Family history of ischemic heart disease and other diseases of the circulatory system; Z86.73 Personal history of transient ischemic attack (TIA), and cerebral infarction without residual deficits; Z91.19 Patient's noncompliance with other medical treatment and regimen; Z79.899 Other long term (current) drug therapy; Z23 Encounter for immunization; Z86.718 Personal history of other venous thrombosis and embolism
CPT/HCPCS: 10081

== ENCOUNTER 2018-01-07 05:33 | Emergency (ER) | payer OTHER ==
[~2018-01-07] VITALS: Ht 157.5 cm; Wt 90.7 kg
[2018-01-07 05:52] LABS: HEMATOCRIT 36.5 % (37.0-47.0); HEMOGLOBIN 11.7 gm/dL (12.0-15.0); MCH 28.9 pg (26.0-34.0); MCHC 32.1 g/dL (28.0-37.0); MCV 90.1 fL (80.0-100.0); RBC 4.05 mil/uL (4.20-5.00); RDW 16.6 % (10.5-14.5); WBC 5.5 thou/uL (4.0-11.0)
[2018-01-07 06:00] LABS: CALCIUM 9.3 mg/dL (8.5-10.1); CREATININE 0.9 mg/dL (0.6-1.0)
[2018-01-07 06:01] LABS: POTASSIUM 2.9 mmol/L (3.5-5.1)
[2018-01-07 06:04] LABS: APTT 29.4 Seconds (24.5-32.8); INR 1.1; PROTIME 11.1 Seconds (9.3-11.4)
[2018-01-07] MEDS ORDERED: POTASSIUM20 PO (07:01)
[2018-01-07 10:15] VITALS: BP 129/82
== END 2018-01-07 10:33 | disposition home or self-care (01) ==
LOC: ER 05:33
PROVIDERS: Emergency Medicine
DX: S01.01XA Laceration without foreign body of scalp, initial encounter (principal); E87.6 Hypokalemia; E03.9 Hypothyroidism, unspecified; I48.91 Unspecified atrial fibrillation; I50.30 Unspecified diastolic (congestive) heart failure; M19.90 Unspecified osteoarthritis, unspecified site; J44.9 Chronic obstructive pulmonary disease, unspecified; Z86.73 Personal history of transient ischemic attack (TIA), and cerebral infarction without residual deficits; Z87.01 Personal history of pneumonia (recurrent); Z88.0 Allergy status to penicillin; Z88.2 Allergy status to sulfonamides; W18.30XA Fall on same level, unspecified, initial encounter; Y93.89 Activity, other specified; Y92.009 Unspecified place in unspecified non-institutional (private) residence as the place of occurrence of the external cause; Y99.8 Other external cause status

== ENCOUNTER → 2018-03-04 | Outpatient (CLI) | payer OTHER ==
[~2018-03-04] MED LIST changes: +POTASSIUM20 PO
== END ==
LOC: RAD 14:18
DX: S22.000A Wedge compression fracture of unspecified thoracic vertebra, initial encounter for closed fracture (principal); J44.9 Chronic obstructive pulmonary disease, unspecified; R60.1 Generalized edema; J96.11 Chronic respiratory failure with hypoxia; J44.1 Chronic obstructive pulmonary disease with (acute) exacerbation; J20.9 Acute bronchitis, unspecified; I50.33 Acute on chronic diastolic (congestive) heart failure; G47.33 Obstructive sleep apnea (adult) (pediatric); E66.01 Morbid (severe) obesity due to excess calories; E66.09 Other obesity due to excess calories; Z68.38 Body mass index [BMI] 38.0-38.9, adult; X58.XXXA Exposure to other specified factors, initial encounter; Y93.89 Activity, other specified; Y92.89 Other specified places as the place of occurrence of the external cause; Y99.8 Other external cause status

== ENCOUNTER 2018-04-22 18:10 | Inpatient (IN) | payer OTHER ==
[~2018-04-22] VITALS: Ht 157.5 cm; Wt 118.0 kg
--- NOTE | ~2018-04-22 | HC ---
[facility] [place] [address] CONSULTATION Name: YUNIOR BEGUM Room #: 245-P [facility] IN M.R.#: [id number] Admission: 04/22/18 ������������������ Attend Phys: Cesar Flores MD Discharge: ������������������ Date of : 31 Report #: [id number] THIS REPORT FOR: //name// CC: Cesar Sanders DATE OF SERVICE: 05/12/2018 PREOPERTIVE DIAGNOSIS: Chronic respiratory failure. POSTOPERATIVE DIAGNOSIS: Chronic respiratory failure. PROCEDURE: Tracheostomy. SURGEON: Abebe Lopez M.D. ANESTHESIA: General oral endotracheal. RD in place. TECHNIQUE: After obtaining consent from her DPOA, she was brought back to the operating suite. Appropriate time out was performed. General oral endotracheal anesthesia was started with an already present oral endotracheal tube. She was placed in a modified neck hyperextension position. Betadine prep was applied followed by sterile draping. A 3 mL of 1% Xylocaine and 1:100,000 epinephrine was injected into the skin approximately 2 fingerbreadths above the clavicles in midline. A sharp incision was made horizontally through skin and subcutaneous fat. A small amount of subcutaneous fat was removed. Midline was identified and using a combination of blunt dissection and LigaSure, strap muscles were removed off the midline in a xpyzxifj-nc-[id number] fashion. This continued down until the cricoid was identified. There was a thyroid remnant present, which was scarified. This was divided in the midline with use of the LigaSure, exposing the cricoid prominence and the first 3 tracheal rings. Electrocautery was then used to lightly open the area and retractors were used to hold the thyroid remnants away from the trachea. A Waqas flap was then created sharply using an 11 blade between the first and second rings and a sharp scissors were used to make the vertical incisions. This was held inferiorly with use of 2-0 chromic suture to the skin. Anesthesia then gently pulled back the endotracheal tube to allow visualization of the trachea. Under direct visualization, a 8.0 fenestrated trach was then placed. The balloon was inflated. It was hooked back to the anesthesia circuit, where CO2 returns were confirmed. Surgicel was then placed around the wound. The trach was then secured to the skin with 2-0 silk sutures. Trach dressing was applied. She was returned back to Anesthesia and taken back to the ICU in stable condition. [address] [address] CONSULTATION Name: YUNIOR BEGUM Room #: 245-P [facility] IN M.R.#: [id number] Admission: 04/22/18 ������������������ Attend Phys: Cesar Flores MD Discharge: ������������������ Date of : 33 Report #: [id number] ESTIMATED BLOOD LOSS: 15 mL. ��������������������������������������������� ���������������������������������������� By: ��������������������������������������������� [id number] Abebe Lopez MD /nt
[2018-04-22 18:11] VITALS: BP 137/49
[2018-04-22 18:33] LABS: HEMATOCRIT 35.4 % (37.0-47.0); MCH 28.3 pg (26.0-34.0); MCHC 31.2 g/dL (28.0-37.0); MCV 90.7 fL (80.0-100.0); PLATELET COUNT 157 thou/uL (150-400); RDW 16.6 % (10.5-14.5); WBC 5.5 thou/uL (4.0-11.0)
[2018-04-22 18:38] LABS: ANION GAP < 0 mmol/L (7-16); BUN 21 mg/dL (7-18); CALCIUM 10.4 mg/dL (8.5-10.1); CHLORIDE 100 mmol/L (98-107); CO2 42 mmol/L (21-32); CREATININE 0.7 mg/dL (0.6-1.0); GLUCOSE 125 mg/dL (74-106); POTASSIUM 4.8 mmol/L (3.5-5.1); SODIUM 141 mmol/L (136-145)
[2018-04-22 18:46] LABS: TROPONIN-I <0.06 ng/mL (<0.06)
[2018-04-22 19:02] LABS: ABSOLUTE NEUTROPHILS 3.4 thou/uL (1.4-8.2)
[2018-04-22 19:03] LABS: ANISOCYTOSIS 1+
[2018-04-22] MEDS ORDERED: LASIX 40 MG TAB40 M2 PO (20:28)
[2018-04-22] MEDS ORDERED: ELIQUIS5 MG PO (20:29)
--- NOTE | 2018-04-22 20:39 | NUR ---
CALLED PT'S SON, WENDI BEGUM, FOR AN UPDATE ON PT. PERMISSION FROM PT OBTAINED PRIOR TO CALLING WEDNI. WENDI ASKED TO BE CALLED FOR UPDATES AND IF NEED ANYTHING. [phone]
[2018-04-23] VITALS (7 sets, daily range): BP systolic 106–143; BP diastolic 48–86
--- NOTE | 2018-04-23 00:06 | NUR ---
CALLED TO GIVE WENDI BEGUM, PT'S SON, AN UPDATE PER PT'S REQUEST. QUESTIONS ANSWERED.
--- NOTE | 2018-04-23 01:00 | NUR ---
PT AOX4. ON 4L NC ON ARRIVAL. TACHYNEIC AND SHALLOW. AFEBRILE. AFIB RVR. ON CARDIZEM AT 15 MG/ML ON ARRIVAL FROM ER. SKIN INTACT. WILL CONTINUE TO MONITOR.
[2018-04-23 05:12] LABS: BE(vivo) 10.9 mmol/L (-2 to +3); HCO3 40.4 mmol/L (22.0-26.0); PO2 87.4 mmHg (80.0-100.0)
[2018-04-23 05:15] LABS: PCO2 86.2 mmHg (35.0-45.0); pH 7.289 (7.360-7.450)
--- NOTE | 2018-04-23 06:00 | NUR ---
AOX4. ON BIPAP CURRENTLY. PT PLACED AFTER CRITICAL ABG. RESULTS COMMUNICATED TO GÉNESIS BEASLEY. TACHYPNEIC. IV CARDIZEM STOPPED, PT HR GOING TO THE 60s. AFEBRILE. FREQUENT TURNS. INCONTINENT. NO COMPLAINS WILL CONTINUE TO MONITOR
[2018-04-23 07:41] LABS: BE(vivo) 12.9 mmol/L (-2 to +3); HCO3 41.5 mmol/L (22.0-26.0); PO2 80.4 mmHg (80.0-100.0); pH 7.341 (7.360-7.450); sO2 94.6 % (92.0-98.0)
[2018-04-23 07:42] LABS: PCO2 78.5 mmHg (35.0-45.0)
--- NOTE | 2018-04-23 08:36 | EKG ---
[address] [address] ELECTROCARDIOGRAM REPORT Name: YUNIOR BEGUM Room #: 239-P ADM IN M.R.#: [id number] ������������������ Admission: 04/22/18 ������������������ Attend Phys: Cesar Flores MD Discharge: ������������������ Date of : 33 Report #: [id number] ����������������������������������������������������������������� [id number] THIS REPORT FOR: //name// [facility] ED Test Date: 2018-04-22 Test Time: 18:54:51 Pat Name: YUNIOR BEGUM Department: Room: 239 Gender: F Science Manager: : 1935 Requested By: Baldev Davey Order Number: [id number] MD: Andrew Bryant Measurements Intervals [place] Rate: 96 P: [place]: QRS: 82 QRSD: 97 T: 8 QT: 344 QTc: 435 Interpretive Statements Atrial fibrillation Low voltage, extremity leads Compared to ECG 01/09/2018 11:53:46 Electronically Signed On 04-23-2018 8:36:17 CLINICAL ACCOUNT EXECUTIVE by Andrew Bryant [email or web address] ��������������������������������������������� <ELECTRONICALLY SIGNED> ���������������������������������������� By: Andrew Bryant MD ��������������������������������������������� 04/23/18 0836 1854 53 Andrew Bryant MD /ALBERT
--- NOTE | 2018-04-23 08:36 | EKG ---
[address] [address] ELECTROCARDIOGRAM REPORT Name: YUNIOR BEGUM Room #: 239-P ADM IN M.R.#: [id number] ������������������ Admission: 04/22/18 ������������������ Attend Phys: Cesar Flores MD Discharge: ������������������ Date of : 33 Report #: [id number] ����������������������������������������������������������������� [id number] THIS REPORT FOR: //name// [facility] ED Test Date: 2018-04-22 Test Time: 18:52:56 Pat Name: YUNIOR BEGUM Department: Room: 239 Gender: F Supervisor Special Services: linda : 1935 Requested By: Baldev Davey Order Number: [id number] MD: Andrew Bryant Measurements Intervals [place] Rate: 130 P: [place]: QRS: 72 QRSD: 86 T: -25 QT: 316 QTc: 465 Interpretive Statements Atrial fibrillation Low voltage, extremity leads Compared to ECG 01/09/2018 11:53:46 T-wave abnormality no longer present Electronically Signed On 04-23-2018 8:35:54 TABLET COATER by Andrew Bryant [email or web address] ��������������������������������������������� <ELECTRONICALLY SIGNED> ���������������������������������������� By: Andrew Bryant MD ��������������������������������������������� 04/23/18 0835 51 51 Andrew Bryant MD /ALBERT
--- NOTE | 2018-04-23 10:52 | NUR ---
Nutrition: RD admit with afib, RVR, SOB. Consult received for weight change. Pt currently requiring continuous bipap. Diet ordered, unable to eat. Requires lasix for CHF. Consistent weight decline over the past year which was previously reported to RD to be combination of fluid and intentional weight loss. Pt reported weight 200# however bedscale weight of 250#. No appetite/intake issues indicated. Consider low nutrition risk.
--- NOTE | 2018-04-23 11:18 | 2DMMODE ---
[facility] [address] [place] [address] 2 D/M-MODE ECHOCARDIOGRAM Name: YUNIOR BEGUM Room #: 239-P ADM IN ..#: [id number] ������������� Admission: 04/22/18 ������������� Attend Phys: Cesar Flores MD Discharge: ��� ������������� ��� Date of : 31 Date of Service: 04/23/18 1118 �� Report #: [id number] �������� ��������������������������������������������[id number] THIS REPORT FOR: //name// APPROVED REPORT Study performed: 04/23/2018 10:09:03 EXAM: Comprehensive 2D, Doppler, and color-flow Echocardiogram Patient Location: ICU Room #: 239 Status: routine BSA: 2.12 HR: 80 bpm BP: 138/48 mmHg Rhythm: Atrial Fibrillation Other Information Study Quality: Good Technically limited study due to morbid obesity and heavy breathing on BiPAP. Indications Short of breath, A-Fib, history of aortic stenosis. Hx: COPD, Afib. 2D Dimensions RVDd: 41.41 mm IVSd: 8.78 (7-11mm) LVOT Diam: 18.73 (18-24mm) LVDd: 44.42 mm PWd: 7.55 (7-11mm) LVDs: 31.55 (25-40mm) Aortic Root: 25.51 mm Volumes Left Atrial Volume (Systole) Single Plane 4CH: 58.58 mL Single Plane 2CH: 101.65 mL LA ESV Index: 40.00 mL/m2 Aortic Valve AoV Peak J Carlos.: 2.37 m/s AO Peak Gr.: 22.47 mmHg LVOT Max P.31 mmHg AO Mean Gr.: 12.89 mmHg AO V2 Mean: 1.73 m/s LVOT Max V: 1.04 m/s AO V2 VTI: 51.06 cm RUSSELL Vmax: 1.20 cm2 [facility] [place] [address] 2 D/M-MODE ECHOCARDIOGRAM Name: YUNIOR BEGUM Room #: 239-P [facility] IN M.R.#: [id number] ������������� Admission: 04/22/18 ������������� Attend Phys: Cesar Flores MD Discharge: ��� ������������� ��� Date of : 31 Date of Service: 04/23/18 1118 �� Report #: [id number] �������� ��������������������������������������������[id number] Mitral Valve MV Decel. Time: 181.59 ms MV E Max J Carlos.: 1.66 m/s IVRT: 44.98 ms Pulmonary Valve PV Peak J Carlos.: 1.18 m/s PV Peak Gr.: 5.56 mmHg Tricuspid Valve TR Peak J Carlos.: 3.07 m/s RAP Estimate: 15.00 mmHg TR Peak Gr.: 38.00 mmHg PA Pressure: 53.00 mmHg Left Ventricle The left ventricle is normal size. There is normal LV segmental wall motion. There is normal left ventricular wall thickness. Left ventricular systolic function is normal. LVEF is 60-65%. This study is not technically sufficient to allow evaluation of the LV diastolic function due to atrial fibrillation. Right Ventricle Right ventricle is mildly dilated. The right ventricular systolic function is normal. Atria Left atrium is moderately dilated. Right atrium is moderately dilated. Aortic Valve Aortic valve is moderately calcified. No aortic regurgitation is present. Mild aortic stenosis. Average peak pressure gradient of 22mmHg and a mean of 13mmHg. Mitral Valve Mitral valve leaflets are thickened. Mild mitral annular calcification. Moderate mitral regurgitation. No evidence of mitral valve stenosis. Tricuspid Valve The tricuspid valve is normal in structure. Moderate to severe tricuspid regurgitation. Estimated PAP is 50mmHg. Pulmonic Valve The pulmonary valve is normal in structure. Moderate pulmonic regurgitation. [facility] [address] [address] 2 D/M-MODE ECHOCARDIOGRAM Name: YUNIOR BEGUM Room #: 239-P [facility] IN M.R.#: [id number] ������������� Admission: 04/22/18 ������������� Attend Phys: Cesar Flores MD Discharge: ��� ������������� ��� Date of : 31 Date of Service: 04/23/18 1118 �� Report #: [id number] �������� ��������������������������������������������[id number] Great Vessels The aortic root is normal in size. Ascending aorta is not well visualized. IVC is dilated and collapses <50% with inspiration. Pericardium Small pericardial effusion noted. <Conclusion> The left ventricle is normal size. LVEF is 60-65%. Right ventricle is mildly dilated. Left atrium is moderately dilated. Right atrium is moderately dilated. Aortic valve is moderately calcified. Mild aortic stenosis. Average peak pressure gradient of 22mmHg and a mean of 13mmHg. Mitral valve leaflets are thickened. Mild mitral annular calcification. Moderate mitral regurgitation. The tricuspid valve is normal in structure. Moderate to severe tricuspid regurgitation. Estimated PAP is 50mmHg. The pulmonary valve is normal in structure. Moderate pulmonic regurgitation. The aortic root is normal in size. Ascending aorta is not well visualized. Small pericardial effusion noted. ��������������������������������������������� <ELECTRONICALLY SIGNED> ���������������������������������������� By: Leon Holliday MD ��������������������������������������������� 04/23/18 1118 1118 1118 Leon Holliday MD /INF
--- NOTE | 2018-04-23 13:08 | EKG ---
[address] [address] ELECTROCARDIOGRAM REPORT Name: YUNIOR BEGUM Room #: 239-P ADM IN M.R.#: [id number] ������������������ Admission: 04/22/18 ������������������ Attend Phys: Cesar Flores MD Discharge: ������������������ Date of : 33 Report #: [id number] ����������������������������������������������������������������� [id number] THIS REPORT FOR: //name// [facility] Test Date: 2018-04-23 Test Time: 11:43:06 Pat Name: YUNIOR BEGUM Department: Room: 239 P Gender: F Refrigerating Technician: [place] JAMESON : 1935 Requested By: Alaina Porter Order Number: [id number] MD: Leon Holliday Measurements Intervals [place] Rate: 81 P: [place]: QRS: 88 QRSD: 87 T: 58 QT: 383 QTc: 445 Interpretive Statements Atrial fibrillation Borderline right axis deviation Low voltage Nonspecific ST-T wave changes Compared to ECG 04/22/2018 18:54:51 No significant changes Electronically Signed On 04-23-2018 13:07:53 CIVIL ENGINEERING TEACHER by Leon Holliday [email or web address] ��������������������������������������������� <ELECTRONICALLY SIGNED> ���������������������������������������� By: Leon Holliday MD ��������������������������������������������� 04/23/18 1307 1143 1143 Leon Holliday MD /EPI
--- NOTE | 2018-04-23 15:41 | NUR ---
Case opened to follow for dc planning. Pt is currently in the ICU on bipap and cardizem gtt. The pt is known to from previous admissions;the most recent in November 2017. She was dc'd to home with [facility]. Flare Maker spoke with the pt's son Lamin to verify her current living situation. ER notes stated pt was brought in from a usp;however she was brought in from her son Lamin's home. She has lived with Lamin, his sign other Esme and Esme's adult son for many years. Lamin does travel some for work but Esme is always with the pt. The pt has home o2/neb per Tc and utlizes 4 liters at baseline. She has a rwalker and w/c. Recent fall noted and Lamin feels she is weaker than normal. He would like to have HH with [facility] again. They are familiar with SNF from several stays last year. He indicates that they are open to discussing therapy recommendations but pefer to take her home and have HH therapy as he feels like she gets more 1:1 care than in the snfs. Pt's dtr Alysha was here visiting today as well. Work excuse letter provided. Call placed to [facility] intake and message left. Pt's son Dr. Ben Robertson is her dpoa if needed for decision making. Will follow along for HH referal at al.
--- NOTE | 2018-04-23 16:54 | NUR ---
FAXED REFERRAL TO [facility] SPOKE WITH PALMIRA IN ADM. SHE WILL REVIEW REFERRAL AND DCP TO FAX PT/OT NOTES ONCE AVAILABLE. DCP TO FOLLOW.
--- NOTE | 2018-04-23 18:00 | NUR ---
Assumed care of patient at 0700. Patient remained on continuous bipap throughout the day. During short breaks from the mask for oral care or meds, patient becomes tachypneic and short of breath. Seen by cardio and pulm consults. Rec'd IV lasix as ordered. Continues on cardizem drip for afib rate control. Denies pain. Continue to monitor.
[2018-04-24] VITALS (94 sets, daily range): BP systolic 82–129; BP diastolic 34–81
--- NOTE | 2018-04-24 04:55 | NUR ---
PT AOX4. ON BIPAP FIO2 40%. TACHYNEIC AT TIMES DURING THE NIGHT. PT ON BIPAP THROUGHOUT THE NIGHT. ON CARDIZEM CURRENTLY AT 5MG FOR RATE CONTROL, AFIB HR IN THE 80S-90S. NO APPARENT PAIN. QUINONES IN PLACE, OUTPUT NOTED. EDUCATED ABOUT RESP STATUS. NO COMPLAINS PRESENTLY. WILL CONTINUE TO MONITOR.
[2018-04-24 05:14] LABS: HEMOGLOBIN 10.3 gm/dL (12.0-15.0); MCH 27.6 pg (26.0-34.0); MCHC 31.2 g/dL (28.0-37.0); MCV 88.5 fL (80.0-100.0); RBC 3.73 mil/uL (4.20-5.00); RDW 16.3 % (10.5-14.5); WBC 5.8 thou/uL (4.0-11.0)
[2018-04-24 05:23] LABS: CALCIUM 9.7 mg/dL (8.5-10.1); CREATININE 0.7 mg/dL (0.6-1.0); POTASSIUM 4.3 mmol/L (3.5-5.1)
--- NOTE | 2018-04-24 10:06 | NUR ---
NOTIFED DR. HANSON ABG ORDERED STAT. CHEST XRAY STAT. SOB TAKING BIPAP OFF ANXIOUS AND MEDICATION GIVEN FOR ANXIETY. RESPIRATORY CALLED FOR ABG. WILL NOTIFY DR. HANSON OF TEST RESULTS AND CHANGED STATUS TO ICU INSTEAD OF CC TELE AT THIS TIME. WILL CONTINUE TO MONITOR AND ASSESS AND NURSING.
[2018-04-24 10:22] LABS: BE(vivo) 13.1 mmol/L (-2 to +3); HCO3 42.4 mmol/L (22.0-26.0); PO2 65.5 mmHg (80.0-100.0); sO2 90.3 % (92.0-98.0)
[2018-04-24 10:23] LABS: PCO2 82.3 mmHg (35.0-45.0)
--- NOTE | 2018-04-24 10:41 | NUR ---
PT TRANSFERED TO ICU POD AND DR. HANSON AWARE OF ABG AND CHEST XRAY AND SON OF PT NOTIFIED OF PT'S STATUS PER RN. ORDER OBTAINED FOR RESTRAINTS DUE TO REMOVES HER BIPAP. REPORT GIVEN TO RN TO ASSUME CARE NOW. WILL CONTINUE TO MANAGE PT STATUS CHANGE PER NURSING AT THIS TIME.
--- NOTE | 2018-04-24 12:39 | NUR ---
VASCULAR ACCESS CONSULTED FOR PICC LINE. PT'S LABS,MEDS,HISTORY,ORDER AND CONSENT REVIEWED. DISCUSSED OICC LINE WITH SON, VERBALIZED UNDERSTANDING. PT WAS PREPPED AND DRAPED FOR MAX BARRIER PRECAUTIONS. 5FR TL POWER PICC TRIMMED INSERTED IN SAEID BASILIC. PICC TRIMMED TO 49CM INSERTED TO 2 CM EXTERNAL. PICC SECURED STAT CXR ORDERED
[2018-04-24 12:40] LABS: BE(vivo) 10.4 mmol/L (-2 to +3); HCO3 36.7 mmol/L (22.0-26.0); PCO2 58.7 mmHg (35.0-45.0); pH 7.414 (7.360-7.450); sO2 96.5 % (92.0-98.0)
--- NOTE | 2018-04-24 14:09 | NUR ---
CXR TOO DEEP, STATED TO PULL BACK 9CM, I PULLED BACK 7 CM NOW REPEAT CXR TOO SHORT, HAD TO DO OTW EXCHANGE TRIMMED PICC TO 46CM INSERTED TO 1CM EXTERNAL. aNOTHER CXR ORDERED.
--- NOTE | 2018-04-24 16:46 | NUR ---
PATIENT WAS BROUGHT OVER TO POD 2 WITH ASSISTANCE OF MEDICAL STAFF. SHE WAS SET UP AND READY FOR INTUBATION, ONCE DR. HANSON ARRIVED. SHE WAS SEDATED PER HIS ORDERS, AND SHE WAS INTUBATED WITHOUT DIFFICULTY. SHE IS RESTING CALMLY AND QUIETLY WITH PROPOFOL GTT DOCUMENTED. CARDIZEM GTT OFF AND CARDIOLOGY AWARE. PATIENTS HEART RATE AT THIS TIME IS IN THE 80-90 RANGE. PER CARDIOLOGY, USE CARDIZEM GTT TO KEEP HEART RATE LESS THAN 1OOBPM NEEDED. ASSESSMENTS AND VITAL SIGNS DOCUMENTED. ORAL CARE PROVIDED. PATIENT HAS BEEN TURNED NOW THAT LINE IS PLACED AND PLACEMENT IS CONFIRMED. NURSE TO CONTINUE TO MONITOR PATIENT STATUS. PLAN OF CARE IS TO CONTINUE TO MONITOR VITAL SIGNS Q30 MINUTES, ASSESSMENTS Q2-4 HOURS, MONITOR LINES/TUBES, MONITOR LABS ORDERED, AND PROVIDE COMFORT AND CARE NEEDED. PROPOFOL GTT FOR PATIENT COMFORT AND VENTILATOR MANAGEMENT. FAMILY UPDATED THROUGHOUT THE DAY.
--- NOTE | 2018-04-24 16:50 | NUR ---
CXR CONFIRMED CAJ, PICC RELEASED FOR IMMEDIATE USE PER PROTOCOL TO DEISY CARPIO
--- NOTE | 2018-04-24 19:47 | HC ---
[facility] [place] [address] CONSULTATION Name: YUNIOR BEGUM Room #: [facility]- ADM IN M.R.#: [id number] Admission: 04/22/18 ������������������ Attend Phys: Cesar Flores MD Discharge: ������������������ Date of : 31 Report #: [id number] THIS REPORT FOR: //name// CC: Cesar Sanders PRIMARY CARE PHYSICIAN: Dr. Luis Fernando Sanders. REFERRAL PHYSICIAN: Dr. Quinteros. REASON FOR REFERRAL: Dyspnea. HISTORY OF PRESENT ILLNESS: The patient is an 83-year-old white female who presented to the ED with progressive dyspnea. A pulmonary consultation is requested. The patient is known to the pulmonary service with history of severe COPD. She has had numerous hospitalizations in the past, last one being in 12/2017. She was last seen in the office in 02/2018. She was felt to have acute bronchitis at that time. Her baseline spirometry showed an FEV1 of 0.79 liter or 47% predicted, she is on chronic O2 at 2.5 liters of oxygen. She normally uses DuoNeb q.i.d. p.r.n. She is not steroid dependent. She is not on azithromycin chronically. She has sleep apnea and is on BiPAP at 24/8 cm of water pressure. She has not been using it on a regular basis. She averaged about 70% of the time. She is only sleeping about less than 5 hours per night with overall AHI on BiPAP remaining abnormal at 16 events per hour. She presents on this occasion with progressive dyspnea started the night prior to presentation. She also notes increase in lower extremity edema for the past 2 days. Otherwise, denies any fever, night sweats or chills, chest pain or productive cough. She is currently doing fairly well on BiPAP. According to the RN, she had mild cyanosis around the facial area and along with perioral area. PAST MEDICAL HISTORY: As mentioned above including COPD, severe impairment; MARY, on BiPAP; history of CVA; chronic hypoxic respiratory failure, requiring 2-1/2 liters of O2; hypertension; hypothyroidism. Echocardiogram from 02/2016 showed ejection fraction of 65%, atrial fibrillation. PAST SURGICAL HISTORY: Includes an appendectomy, cholecystectomy, left leg vein stripping. [facility] [address] [place] [address] CONSULTATION Name: YUNIOR BEGUM Room #: 245-P ADM IN M.R.#: [id number] Admission: 04/22/18 ������������������ Attend Phys: Cesar Flores MD Discharge: ������������������ Date of : 31 Report #: [id number] ALLERGIES: PENICILLIN, SULFA. HOME MEDICATIONS: Reviewed. These include Lasix, DuoNebs q.i.d. p.r.n., Synthroid, Bactroban, potassium supplements. FAMILY HISTORY: Notable for heart disease, hypertension, prostate cancer and diabetes. Mother at the age of 80. Father at the age of 94. SOCIAL HISTORY: She has never smoked. Denies any alcohol use. REVIEW OF SYSTEMS: As mentioned above, otherwise deferred as the patient is currently on BiPAP. PHYSICAL EXAMINATION: GENERAL: She is awake, alert, in no distress while on BiPAP. VITAL SIGNS: Temperature is 97.8 degrees Fahrenheit, pulse is 85, respiratory rate is 14, blood pressure is 138/48 mmHg, saturation 94%. HEENT: Normocephalic, atraumatic. NECK: Supple without lymphadenopathy or thyromegaly. CHEST: Breath sounds are fair with mild expiratory wheezes. No obvious rales. CARDIOVASCULAR: Normal S1, S2. No murmurs or gallop. There is no JVD, no carotid bruit. Pulses are 2+/4+ bilaterally. ABDOMEN: Soft, nontender, no organomegaly or masses felt. GENITOURINARY: Deferred. RECTAL: Deferred. EXTREMITIES: Trace bilateral edema. No cyanosis or clubbing. NEUROLOGICAL: Grossly intact. LABORATORY DATA: Portable chest x-ray shows small lung volumes, chronic left lower lobe atelectasis, cardiomegaly, otherwise no acute changes. BNP 1900. TSH is normal. D-dimer 0.44. Echocardiogram showed ejection fraction of 65%, right ventricle is mildly dilated, both left and right atrium is dilated, mild aortic stenosis, moderate mitral regurg, pulmonary artery pressure measuring 50 mmHg. EKG shows atrial fibrillation, no acute changes. Electrolytes are grossly unremarkable. WBC 5500, no evidence of bandemia. Platelets are normal. Arterial blood gas on admission revealed pH 7.28, pCO2 of 86, pO2 87 on 4 liters of O2. IMPRESSION: 1. Progressive dyspnea in this 83-year-old white female with history of severe chronic obstructive pulmonary disease and obstructive sleep apnea. Chest x-ray is grossly unremarkable. Arterial blood gas shows pfykg-zl-zairxzv hypercapnic hypoxic respiratory failure. Suspect secondary to chronic obstructive pulmonary disease along with [facility] [address] [place] [address] CONSULTATION Name: YUNIOR BEGUM Room #: 245-P ADM IN M.R.#: [id number] Admission: 04/22/18 ������������������ Attend Phys: Cesar Flores MD Discharge: ������������������ Date of : 33 Report #: [id number] obstructive sleep apnea, but the patient has not been compliant with the use of BiPAP on nightly basis. Cannot rule out component of heart failure. Lower respiratory tract infection is also considered. 2. Chronic obstructive pulmonary disease, severe impairment, baseline FEV1 of 0.79 liters, 47% predicted with frequent exacerbation. The patient may be a candidate for chronic azithromycin therapy. This will be addressed as an outpatient. 3. Obstructive sleep apnea, on BiPAP, she requires a BiPAP at 24/8 cm of water pressure. With the frequent hospitalization, progressive dyspnea, sleep apnea may also need to be reevaluated regarding efficacy of treatment. Compliance has been an issue in the past. 4. Aurnc-rj-kdmjcyw hypercapnic hypoxic respiratory failure. 5. Morbid obesity with a body mass index of 44, with profound hypercapnia, the patient probably has a component of obesity hypoventilation syndrome contributing to current problem. 6. Permanent atrial fibrillation with rapid ventricular response due to pulmonary impairment. Cardiology has been consulted. She is on chronic anticoagulation. 7. Sxbfe-oe-vtkfboz diastolic heart failure, multifactorial due to above processes as mentioned. Currently on diuresis. 8. Bipolar disorder; maybe a problem with compliance. RECOMMENDATION: We will continue bronchodilators, corticosteroids, noninvasive ventilation. Wean O2 for saturation 90%. We will again address the compliance with the use of BiPAP. DVT and GI prophylaxis recommended. Thank you for this consultation. ��������������������������������������������� <ELECTRONICALLY SIGNED> ���������������������������������������� By: Lenin Kaminski MD ��������������������������������������������� 04/24/18 1947 1753 0634 Lenin Kaminski MD /nt
--- NOTE | 2018-04-24 23:57 | NUR ---
INTUBATED. SEDATED WITH PROPOFOL. GCS 7. DOES NOT OPEN EYES, NONVERBAL, LOCALIZED RESPONSE TO PAIN. WHEN SEDATION DECREASED, PT BECOMES AGITATED BUT WILL KRUSE AND FOLLOW SIMPLE COMMANDS. BUE RESTRAINTS IN PLACE. AFIB ON MONITOR. AT THIS TIME, PT MAINTAINING HEART RATE < 100 AND CARDIZEM GTT REMAINS OFF. 7.5 ET TUBE. 19CM AT TEETH (WITHDRAWN 2CM THIS SHIFT, PER. DR HANSON'S INSTRUCTIONS). AC 16. TV 450. PEEP 5. FIO2 50%. SMALL VOLUME CLEAR SPUTUM. NPO. OG TUBE AT 63CM. LIS. QUINONES TO DD. LOW URINE OUTPUT THIS SHIFT. PER DR. HANSON, ADMINISTER 1L NS OVER 4 HOURS, THEN CONTINUE NS AT 150ML/HR. VITAL SIGNS AND ASSESSMENTS DOCUMENTED. WILL CONTINUE TO MONITOR.
[2018-04-25] VITALS (82 sets, daily range): BP systolic 79–165; BP diastolic 33–90
[2018-04-25 04:17] LABS: HEMATOCRIT 29.8 % (37.0-47.0); HEMOGLOBIN 9.8 gm/dL (12.0-15.0); MCH 28.5 pg (26.0-34.0); MCHC 32.9 g/dL (28.0-37.0); MCV 86.8 fL (80.0-100.0); RBC 3.44 mil/uL (4.20-5.00); RDW 15.8 % (10.5-14.5); WBC 5.3 thou/uL (4.0-11.0)
[2018-04-25 04:22] LABS: ALBUMIN 2.1 g/dL (3.4-5.0); CREATININE 0.7 mg/dL (0.6-1.0); POTASSIUM 3.5 mmol/L (3.5-5.1)
[2018-04-25 05:17] LABS: BE(vivo) 15.6 mmol/L (-2 to +3); HCO3 39.6 mmol/L (22.0-26.0); PCO2 45.8 mmHg (35.0-45.0); PO2 55.9 mmHg (80.0-100.0); pH 7.555 (7.360-7.450); sO2 92.3 % (92.0-98.0)
--- NOTE | 2018-04-25 09:00 | NUR ---
CODE CALLED PT EXTUBATED HERSELF IN RESTRATINTS X2. RESPIRATORY AT BEDSIDE BAGGING PT AND MAINTAING OXYGEN SATURATION. [address] HANSON NOTIFIED. AND ER DOCTOR REITUBAITED PT 100 SUCCINATE USED 7.0 ET TUBE PLACED BREATH SOUNDS BILATERAL. COLOR CHANGE NOTED WILL OBTAIN A STAT CHEST XRAY PER NURSING
[2018-04-25 12:26] LABS: CALCIUM 9.5 mg/dL (8.5-10.1); CREATININE 0.9 mg/dL (0.6-1.0); MAGNESIUM 1.4 mg/dL (1.8-2.4); POTASSIUM 3.9 mmol/L (3.5-5.1)
[2018-04-25 12:34] LABS: BE(vivo) 11.4 mmol/L (-2 to +3); PCO2 59.2 mmHg (35.0-45.0); PO2 73.6 mmHg (80.0-100.0); pH 7.425 (7.360-7.450); sO2 94.7 % (92.0-98.0)
--- NOTE | 2018-04-25 15:40 | 2DMMODE ---
[facility] [address] [place] [address] 2 D/M-MODE ECHOCARDIOGRAM Name: YUNIOR BEGUM Room #: 245-P ADM IN M.R.#: [id number] ������������� Admission: 04/22/18 ������������� Attend Phys: Cesar Flores MD Discharge: ��� ������������� ��� Date of : 31 Date of Service: 04/25/18 1540 �� Report #: [id number] �������� ��������������������������������������������[id number] THIS REPORT FOR: //name// APPROVED REPORT Study performed: 04/25/2018 15:12:07 EXAM: Limited 2D, Doppler, and color-flow Echocardiogram Patient Location: ICU Room #: [facility] Status: routine BSA: 2.15 HR: 90 bpm BP: 126/59 mmHg Rhythm: Atrial Fibrillation Other Information Study Quality: Adequate Technically limited study due to patient in ICU on vent laying on right side.. Indications Follow up limited echo for right heart function status post respiratory arrest. Hx: Afib, COPD, morbid obesity. (Complete echo done 04/23/18) Tricuspid Valve TR Peak J Carlos.: 3.13 m/s RAP Estimate: 15.00 mmHg TR Peak Gr.: 39.16 mmHg PA Pressure: 55.00 mmHg Left Ventricle The left ventricle is normal size. There is normal LV segmental wall motion. Left ventricular systolic function is normal. LVEF is 60-65%. Right Ventricle Right ventricle is dilated. Right ventricle is mildly hypokinetic. Atria Left atrium is dilated. Right atrium is dilated. Aortic Valve Aortic valve is calcified. No aortic regurgitation is present. [facility] [address] [place] [address] 2 D/M-MODE ECHOCARDIOGRAM Name: YUNIOR BEGUM Room #: 245-P ADM IN M.R.#: [id number] ������������� Admission: 04/22/18 ������������� Attend Phys: Cesar Flores MD Discharge: ��� ������������� ��� Date of : 31 Date of Service: 04/25/18 1540 �� Report #: [id number] �������� ��������������������������������������������[id number] Mitral Valve Mitral valve leaflets are thickened without reduced excursion. Moderate mitral regurgitation. Tricuspid Valve The tricuspid valve is normal in structure. Moderate tricuspid regurgitation. Estimated PAP is 55mmHg. Great Vessels IVC is dilated and collapses <50% with inspiration. Pericardium Small pericardial effusion noted. <Conclusion> The left ventricle is normal size. LVEF is 60-65%. Right ventricle is dilated. Right ventricle is mildly hypokinetic. Left atrium is dilated. Right atrium is dilated. Aortic valve is calcified. Mitral valve leaflets are thickened without reduced excursion. Moderate mitral regurgitation. The tricuspid valve is normal in structure. Moderate tricuspid regurgitation. Estimated PAP is 55mmHg. Small pericardial effusion noted. ��������������������������������������������� <ELECTRONICALLY SIGNED> ���������������������������������������� By: Leon Holliday MD ��������������������������������������������� 04/25/18 1540 1540 1540 Leon Holliday MD /INF
[2018-04-25 16:19] LABS: HCO3 34.3 mmol/L (22.0-26.0); PCO2 55.6 mmHg (35.0-45.0); PO2 68.7 mmHg (80.0-100.0); pH 7.408 (7.360-7.450); sO2 93.5 % (92.0-98.0)
--- NOTE | 2018-04-25 17:55 | NUR ---
PT IS SEDATED ON THE VENT. ABG CALLED TO DR. HANSON THIS EVENING. MAINITINING OXYGEN SATURATION OF 96 PERCENT ON THE VENT. FAMILY AT BEDSIDE UPDATED ON PT'S STATUS. NEG FOR CLOT. LUNGS ARE CLEAR TO DIMINISHED. BOWEL SOUNDS HYPOACTIVE. QUINONES TO DD WITH ARTURO URINE. ON THE EDGING CATCHER AFIB. CONTROLED RATE. URINE OUTPUT PICKED UP WITH LASIX AND BOLUS GIVEN TO PT. SCDS ON BILATERAL. REPOS AND TURN Q 2 HOURS. WILL CONTINUE TO ASSESS AND MONITOR PER NURSING
[2018-04-26] VITALS (23 sets, daily range): BP systolic 102–141; BP diastolic 47–86
[2018-04-26 05:13] LABS: BE(vivo) 8.8 mmol/L (-2 to +3); HCO3 34.1 mmol/L (22.0-26.0); PCO2 50.7 mmHg (35.0-45.0); PO2 81.8 mmHg (80.0-100.0); pH 7.446 (7.360-7.450); sO2 96.3 % (92.0-98.0)
[2018-04-26 05:33] LABS: CALCIUM 8.8 mg/dL (8.5-10.1); CREATININE 0.7 mg/dL (0.6-1.0)
[2018-04-26 05:38] LABS: POTASSIUM 2.9 mmol/L (3.5-5.1)
[2018-04-26 05:41] LABS: HEMATOCRIT 34.2 % (37.0-47.0); HEMOGLOBIN 10.7 gm/dL (12.0-15.0); MCH 27.3 pg (26.0-34.0); MCHC 31.2 g/dL (28.0-37.0); MCV 87.5 fL (80.0-100.0); RBC 3.91 mil/uL (4.20-5.00); RDW 16.5 % (10.5-14.5); WBC 5.3 thou/uL (4.0-11.0)
--- NOTE | 2018-04-26 06:03 | NUR ---
No significant changes observed through the night. VS stable and SpO2 adequate on current vent settings. PRN morphine given earlier for breakthrough restlessness with desired effect achieved. Urine output adequate for shift and no BM observed. Am lab and ABG results noted, continue with POC.
[2018-04-26 12:02] LABS: MAGNESIUM 1.5 mg/dL (1.8-2.4); POTASSIUM 3.6 mmol/L (3.5-5.1)
--- NOTE | 2018-04-26 20:02 | NUR ---
PT REMAINS INTUBATED. SEDATED ON PROPOFOL @ 30 MCG. OPENS EYES AND FOLLOWS SIMPLE COMMANDS - SLIGHT TREMOR NOTED WHEN SEDATION REDUCED. PROVIDERS AWARE. MG+ AND k+ REPLACED PER ELECTROLYTE PROTOCOL. NS INFSUING AT 125 ML/HR. ADDITIONAL 1L FLUID BOLUS GIVEN FOR MINIMAL URINE OUTPUT. ONETIME DOSE 40 LASIX GIVEN. TUBE FEEDINGS INITIATED AT 20 ML/HR. TO REMAIN AT LOW RATE UNTIL REHAB OFFICE COORDINATOR GIVES RECOMMENDATION. NO CPAP TRIAL TODAY - PER PULMONARY. WILL ATTEMPT TOMORROW? BILATERAL WRIST RESTRAINTS.
[2018-04-27] VITALS (24 sets, daily range): BP systolic 92–127; BP diastolic 42–73
[2018-04-27 04:33] LABS: HEMATOCRIT 37.3 % (37.0-47.0); MCH 27.8 pg (26.0-34.0); MCHC 32.2 g/dL (28.0-37.0); MCV 86.3 fL (80.0-100.0); RBC 4.32 mil/uL (4.20-5.00); RDW 16.4 % (10.5-14.5)
[2018-04-27 04:42] LABS: POTASSIUM 3.7 mmol/L (3.5-5.1)
--- NOTE | 2018-04-27 06:46 | NUR ---
ASSUMED CARE OF PT AT 1900. PT SEDATED ON PROPOFOL PER VENT MANAGMENT. PT ABLE TO FOLLOW SIMPLE COMMANDS AND NODS APPROPRIATELY TO YES/NO QUESTIONS ON SEDATION VACATION. HOWEVER, PT IS IMPULSIVE AND REMAINS ON BILAT SOFT WRIST RESTRAINS. GENERALIZED TREMORS NOTED WHEN SEDATION TITRATED DOWN. PROVIDERS AWARE. REMAINS ON A FIB ON THE MONITOR. VSS. MARGINAL UO. NO SKIN ISSUES. WILL CONTINUE TO MONITOR.
--- NOTE | 2018-04-27 18:31 | NUR ---
ASSUMED CARE OF PATIENT AT 0700. PT IS CURRENTLY INTUBATED AND SEDATIED WITH PROPOFOL FOR VENT MANAGEMENT. CONT ON DILTIAZEM DRIP, PT IS AFIB ON THE MONITOR. SHE HAS BEEN AFIBRILE. PT OUTPUT HAS BEEN LOW AND DR PENALOZA WELL DR HANSON NOTIFIED. WILL CONTINUE TO PROVIDE CARE TOWARDS GOALS.
[2018-04-28] VITALS (24 sets, daily range): BP systolic 106–131; BP diastolic 38–78
[2018-04-28 04:06] LABS: CALCIUM 8.5 mg/dL (8.5-10.1); CREATININE 1.2 mg/dL (0.6-1.0); POTASSIUM 3.8 mmol/L (3.5-5.1)
[2018-04-28 04:26] LABS: HEMATOCRIT 34.7 % (37.0-47.0); HEMOGLOBIN 11.2 gm/dL (12.0-15.0); MCH 28.1 pg (26.0-34.0); MCHC 32.2 g/dL (28.0-37.0); MCV 87.3 fL (80.0-100.0); RBC 3.97 mil/uL (4.20-5.00); RDW 16.7 % (10.5-14.5); WBC 8.3 thou/uL (4.0-11.0)
[2018-04-28 05:36] LABS: BE(vivo) 2.6 mmol/L (-2 to +3); HCO3 27.6 mmol/L (22.0-26.0); PCO2 44.3 mmHg (35.0-45.0); pH 7.412 (7.360-7.450); sO2 88.2 % (92.0-98.0)
[2018-04-28 05:38] LABS: PO2 53.8 mmHg (80.0-100.0)
--- NOTE | 2018-04-28 06:45 | NUR ---
ASSUMED CARE OF PT AT 1900. PT SEDATED ON PROPOFOL PER VENT MANAGMENT. PT ABLE TO WAKE UP ON SEDATION VACATION, FOLLOWS COMMANDS AND NODS APPROPRIATELY TO QUESTIONS. A FIB ON THE MONITOR. VSS. MARGINAL UO DESPITE SEVERAL INTERVENTIONS. SKIN INTACT. FAMILIY UPDATED ON PLAN OF CARE AT BEDSIDE.
--- NOTE | 2018-04-28 09:10 | NUR ---
Recommend change tube feeding to vital high protein start at 30ml/hr and progress to goal 50ml/hr.
--- NOTE | 2018-04-28 12:18 | NUR ---
Nutrition status has changed, pt now on enteral nutrition.
--- NOTE | 2018-04-28 19:08 | NUR ---
CONT ON PROPOFOL FOR SEDATION. DID VACATE SEDATION BUT PATIENT WAS AGITATIVE ATTEMPTING TO PULL OFF TUBE. CONT ON RESTRAINTS AT THIS TIME. SHE IS ABLE TO ANSWER YES OR NO TO QUESTIONS. SHE FOLLOWS SIMPLE COMMANDS LIKE TO CLOSE HER EYES, SQUEEZE MY HAND. EXPLAINED TO PATIENT WHY SHE HAD TUBE AND WHAT WE ARE LOOKING FOR TO EVENTUALLY TAKE IT OUT. SHE NODDED UNDERSTANDING. SHE DENIED PAIN WHEN ASKED. SHOKE HER HEAD THAT SHE WAS NOT IN PAIN. ORAL CARE PROVIDED, SHE WAS TURNED Q2. WILL CONT WITH PLAN OF CARE.
[2018-04-29] VITALS (19 sets, daily range): BP systolic 118–146; BP diastolic 61–85
[2018-04-29 05:09] LABS: ALBUMIN 2.6 g/dL (3.4-5.0); CREATININE 1.2 mg/dL (0.6-1.0); POTASSIUM 3.7 mmol/L (3.5-5.1); TOTAL BILIRUBIN 0.5 mg/dL (<0.1-1.0); TOTAL PROTEIN 5.6 g/dL (6.4-8.2)
--- NOTE | 2018-04-29 08:20 | NUR ---
ASSUMED CARE OF PT AT 1900. PT SEDATED ON PROPOFOL PER VENT MANAGMENT. PT ABLE TO FOLLOW COMMANDS AND NODS APPROPRIATELY TO QUESTIONS. BILATERAL SOFT WRIST. VSS. GOOD UO.
--- NOTE | 2018-04-29 18:42 | NUR ---
PATIENT ON MODERATE SEDATION, ABLE TO FOLLOW COMMANS. SPIN TANK TENDER WEAK IN UPPER EXTREMITIES. A-FIB ON MARBLE MASON. ON VENTILATIOR, 50% FIO2. OG, TOLERATING TUBE FEEDING. QUINONES PATENT WITH INCREASED OUTPUT FROM PREVIOUS SHIFT. BLOOD SUGAR MONITORED. FAMILY AND PATIENT UPDATED ON THE PLAN OF CARE. NO SIGNS OF ACUTE DISTRESS NOTED AT THIS TIME. WILL CONTINUE TO MONITOR.
[2018-04-30] VITALS (22 sets, daily range): BP systolic 113–134; BP diastolic 49–87
--- NOTE | 2018-04-30 05:16 | NUR ---
SEDATED ON VENT. FOLLOW COMMANDS ON SEDATION VACATION. ABLE TO NOD YES/NO TO QUESTIONS. MEDICATED FOR PAIN. VSS. AFBEBRILE. RESTRAINTS IN PLACE. TOLERATING VENT SETTINGS. AFIB ON MONITOR, RATE CONTROLLED. TF ONGOING, RESIDUALS NOTED. FREQUENT TURNS AND ORAL CARE. URINE OUTPUT NOTED. SON IN DURING THE NIGHT TO VISIT WITH PATIENT. PT SLOWLY PROGRESSING TOWARDS GOAL. WILL CONTINUE TO MONITOR.
[2018-04-30 06:13] LABS: ALBUMIN 2.9 g/dL (3.4-5.0); CALCIUM 9.4 mg/dL (8.5-10.1); CREATININE 1.1 mg/dL (0.6-1.0); PHOSPHORUS 4.8 mg/dL (2.5-4.9); POTASSIUM 3.8 mmol/L (3.5-5.1)
--- NOTE | 2018-04-30 09:41 | NUR ---
Continue to advance tube feed rate as tolerated to goal of 50ml/hr. However, if propofol stopped, new goal will be 60ml/hr
[2018-04-30 09:47] LABS: HCO3 33.5 mmol/L (22.0-26.0); PCO2 63.9 mmHg (35.0-45.0); PO2 83.8 mmHg (80.0-100.0); pH 7.338 (7.360-7.450); sO2 95.4 % (92.0-98.0)
--- NOTE | 2018-04-30 19:41 | NUR ---
PATIENT ON LIGHT SEDATION, FOLLOWS COMMANDS WITH SEDATION VACATION. A-FIB ON MANAGER FLEET, ON VENTILATOR 40% FIO2. TOLERATING TUBE FEEDINGS. QUINONES PATENT AND DRAINING. BLOOD SUGAR MONITORED. FAMILY AND PATIENT UPDATED ON THE PLAN OF CARE. NO SIGNS OF ACUTE DISTRESS NOTED AT THIS TIME. WILL CONTINUE TO MONITOR.
[2018-05-01] VITALS (14 sets, daily range): BP systolic 110–144; BP diastolic 62–122
[2018-05-01 05:11] LABS: BE(vivo) 5.1 mmol/L (-2 to +3); HCO3 31.8 mmol/L (22.0-26.0); PCO2 56.7 mmHg (35.0-45.0); PO2 73.7 mmHg (80.0-100.0); pH 7.367 (7.360-7.450); sO2 94.1 % (92.0-98.0)
[2018-05-01 06:17] LABS: HEMATOCRIT 35.6 % (37.0-47.0); HEMOGLOBIN 11.4 gm/dL (12.0-15.0); MCH 27.9 pg (26.0-34.0); MCHC 32.1 g/dL (28.0-37.0); MCV 86.9 fL (80.0-100.0); RBC 4.1 mil/uL (4.20-5.00); RDW 16.3 % (10.5-14.5)
[2018-05-01 06:30] LABS: ALBUMIN 2.7 g/dL (3.4-5.0); CALCIUM 9.2 mg/dL (8.5-10.1); CREATININE 1.1 mg/dL (0.6-1.0); PHOSPHORUS 4.5 mg/dL (2.5-4.9); POTASSIUM 3.6 mmol/L (3.5-5.1)
--- NOTE | 2018-05-01 07:59 | NUR ---
PT SEDATED ON VENT. FOLLOW COMMANDS. ABLE TO SQUEEZE HANDS, ALTHOUGH WEAK. AFEBRILE. DENIED PAIN. AFIB ON THE MONITOR, RATE CONTROLLED. TOLERATING VENT SETTINGS. HIGH TUBE FEEDING RESIDUALS, RESTARTED AT 0300 AM. FREQUENT TURNS AND ORAL CARE. FAMILY IN TO VISIT DURING THE NIGHT. REPORT GIVEN TO SHERIN CARPIO. SLOWLY PROGRESSING TOWARDS GOALS.
[2018-05-01 10:42] LABS: BE(vivo) 6.6 mmol/L (-2 to +3); PCO2 62.7 mmHg (35.0-45.0); PO2 87.7 mmHg (80.0-100.0); pH 7.352 (7.360-7.450)
--- NOTE | 2018-05-01 16:45 | NUR ---
PATIENT HAD SUSTAINED HR ABOVE 140 WHILE A FRIEND VISITED HER. LATER WHEN FRIEND LEFT HER HR STABILIXED TO BELOW 100. WILL ORAL CARE ADMINISTERED, TURNED Q2. DOES NOT SEEM TO BE IN PAIN. DURING SEDATION VACATION SHE IS ABLE TO COMMUNICATE THAT SHE IS NOT IN PAIN WHEN ASKED. NO BM TODAY. FLATUCE NOTED. KUB TO ABD DONE. AWAITING RESULTS. OUTPUT HAS SIGNIFICANLTY IMPROVED TODAY SHE HAD 2000MLS . WILL START DILTIZEM DRIP TO CONTROL HEART RATE. WILL CONT [facility] PLAN OF CARE.
--- NOTE | 2018-05-01 16:52 | NUR ---
FOLLOWING FOR DC PLANNING. CLINICAL INFO REVIEWED AND SPOKE WITH PT'S DTR ESSENCE TODAY. PROVIDED ESSENCE WITH REQUESTED LETTER FOR HER WORK. ESSENCE WITH MANY QUESTIONS ABOUT PT'S CONDITION AND "NEXT STEPS". EXPLAIINED TO ESSENCE WORKING ON TRYING TO WEAN PT FROM VENTILATOR DEPENDENCE OVER NEXT FEW DAYS. PER DR. SHARMA'S NOTE, HE HAS DISCUSSED CONDITION WITH FAMILY INCLUDING DPOA SON JB AND FAMILY WANTS TO MAINTAIN AGGRGESSIVE CARE BUT LIKLEY NOT OPEN TO TRACH IF WOULD BE NEEDED. ESSENCE COMMUNICATES UNDERSTANDING OF THIS. EMOTIONAL SUPPORT OFFERRED.
[2018-05-02] VITALS (23 sets, daily range): BP systolic 101–145; BP diastolic 49–89
[2018-05-02 06:07] LABS: HEMATOCRIT 34.8 % (37.0-47.0); HEMOGLOBIN 11.2 gm/dL (12.0-15.0); MCH 27.7 pg (26.0-34.0); MCHC 32.1 g/dL (28.0-37.0); MCV 86.3 fL (80.0-100.0); RBC 4.03 mil/uL (4.20-5.00); RDW 16.3 % (10.5-14.5); WBC 9.5 thou/uL (4.0-11.0)
[2018-05-02 06:21] LABS: CALCIUM 9.2 mg/dL (8.5-10.1); CREATININE 1.1 mg/dL (0.6-1.0); MAGNESIUM 1.9 mg/dL (1.8-2.4); POTASSIUM 3.3 mmol/L (3.5-5.1)
--- NOTE | 2018-05-02 06:30 | NUR ---
SEDATED ON VENT, ON PROPOFOL AT 20 MCGS. FOLLOW COMMANDS ON SEDATION VACATION ALTHOUGH WEAK. DENIED PAIN, NO APPARENT PAIN. AFIB ON MONITOR, AT APPROXIMATELY 2045, PT HR IN THE 130S SUSTAINED. STARTED ON IV CARDIZEM. CURRENTLY OFF CARDIZEM GTT. PO GIVEN PER ORDERS. OG IN PLACE, RESIDUALS NOTED. OUTPUT NOTED. WILL CONTINUE TO MONITOR
[2018-05-02 08:22] LABS: URINE BILIRUBIN NEGATIVE (Negative); URINE BLOOD 2+ (Negative); URINE CLARITY SL CLOUDY; URINE COLOR YELLOW; URINE GLUCOSE-RANDOM* NEGATIVE (Negative); URINE KETONES NEGATIVE (Negative); URINE NITRITE-REFLEX NEGATIVE (Negative); URINE PROTEIN (DIPSTICK) NEGATIVE (Negative); URINE UROBILINOGEN 0.2 E.U./dl (0.2-1.0)
[2018-05-02 08:24] LABS: URINE LEUKOCYTES-REFLEX 2+ (Negative)
[2018-05-02 08:45] LABS: SQUAMOUS 4-10 Moderate /LPF (0-3)
[2018-05-02 08:46] LABS: BACTERIA-REFLEX >30 Many /HPF (None Seen); CASTS None Seen /LPF (None Seen); CRYSTALS None Seen /LPF (None Seen); URINE RBC 3-10 Few /HPF (0-2); URINE WBC-REFLEX >25 Many /HPF (0-5)
[2018-05-03] VITALS (26 sets, daily range): BP systolic 121–163; BP diastolic 51–102
--- NOTE | 2018-05-03 04:18 | NUR ---
PT CURRENTLY RESTING IN BED REMAINS ON VENT FIO2 40% SATS 96%. PT AFEBRILE AND VSS. PT AFIB ON MONITOR. CONTINUES WITH TUBE FEEDS AT GOAL RATE AND TOLERATING. PT AM LABS TO BE DRAWN AND REVIEWED.
[2018-05-03 05:21] LABS: BE(vivo) 8.5 mmol/L (-2 to +3); HCO3 34.8 mmol/L (22.0-26.0); PCO2 56.1 mmHg (35.0-45.0); PO2 81.1 mmHg (80.0-100.0); pH 7.411 (7.360-7.450); sO2 95.8 % (92.0-98.0)
[2018-05-03 05:39] LABS: HEMATOCRIT 36.4 % (37.0-47.0); HEMOGLOBIN 11.8 gm/dL (12.0-15.0); MCH 27.9 pg (26.0-34.0); MCHC 32.5 g/dL (28.0-37.0); MCV 85.8 fL (80.0-100.0); RBC 4.24 mil/uL (4.20-5.00); RDW 16.4 % (10.5-14.5); WBC 10.7 thou/uL (4.0-11.0)
[2018-05-03 05:55] LABS: CALCIUM 9.6 mg/dL (8.5-10.1); MAGNESIUM 2.1 mg/dL (1.8-2.4); POTASSIUM 3.3 mmol/L (3.5-5.1)
[2018-05-03 09:14] LABS: BE(vivo) 7.6 mmol/L (-2 to +3); HCO3 35.6 mmol/L (22.0-26.0); PO2 87.6 mmHg (80.0-100.0); pH 7.343 (7.360-7.450); sO2 95.9 % (92.0-98.0)
--- NOTE | 2018-05-03 18:07 | NUR ---
PATIENT ON VENTILATOR, ALERT AND FOLLOWS COMMANDS. NODS TO YES/NO QUESTIONS. A-FIB ON THEATRE ARTS PROFESSOR. VENTILATOR 40% FIO2. TOLERATING TUBE FEEDING. QUINONES PATENT AND DRAINING. TURNED Q2H. NO COMPLAINTS OF PAIN. BLOOD SUGAR MONITORED. CPAP TRIAL TODAY FOR 1 HOUR. PATIENT AND FAMILY UPDATED ON THE PLAN OF CARE. NO SIGNS OF ACUTE DISTRESS NOTED AT THIS TIME. WILL CONTINUE TO MONITOR.
[2018-05-04] VITALS (32 sets, daily range): BP systolic 122–170; BP diastolic 56–97
[2018-05-04 05:42] LABS: HEMATOCRIT 34.3 % (37.0-47.0); HEMOGLOBIN 11.1 gm/dL (12.0-15.0); MCH 27.9 pg (26.0-34.0); MCHC 32.4 g/dL (28.0-37.0); MCV 86.1 fL (80.0-100.0); RBC 3.98 mil/uL (4.20-5.00); RDW 16.2 % (10.5-14.5)
[2018-05-04 05:51] LABS: CALCIUM 9.2 mg/dL (8.5-10.1); POTASSIUM 3.6 mmol/L (3.5-5.1)
--- NOTE | 2018-05-04 07:31 | NUR ---
PT RESTED WELL ON THE VENT, DENIES PAIN, FOLLOWS COMMANDS. METOPROLOL IV GIVEN ONCE FOR HR GREATER THAN 130 AND SUSTAINED. CARDIZEM GIVEN PER SCHEDULE.PT CONTIUNUES TO BE IN AFIB, WITH RATE CONTROLLED THIS MORNING. PT TOLERATING TUBE FEEDING, NO BM BUT FLATUS. URINE ADEQUATE. REPOSITIONING DONE q2, BATH GIVEN , NO SKIN BREAKDOWN.
[2018-05-04 11:50] LABS: BE(vivo) 9.8 mmol/L (-2 to +3); HCO3 36.5 mmol/L (22.0-26.0); PCO2 59.2 mmHg (35.0-45.0); PO2 86.4 mmHg (80.0-100.0); pH 7.408 (7.360-7.450); sO2 96.4 % (92.0-98.0)
--- NOTE | 2018-05-04 19:26 | NUR ---
PATIENT ALERT, ABLE TO ANSWER YES/NO QUESTIONS. A-FIB ON BAND AND CUFF CUTTER, IV AMIODARONE STARTED. ON 40% FIO2, CPAP TRIAL FOR 3 1/2 HOURS TODAY. OG TUBE, TOLERATING TUBE FEEDING. QUINONES PATIENT AND DRAINING. PICC LINE DRESSING INTACT. BLOOD SUGAR MONITORED. FAMILY AND PATIENT UPDATED ON THE PLAN OF CARE. NO SIGNS OF ACUTE DISTRESS NOTED AT THIS TIME. WILL CONTINUE TO MONITOR.
[2018-05-05] VITALS (29 sets, daily range): BP systolic 106–170; BP diastolic 50–78
[2018-05-05 05:31] LABS: BE(vivo) 4.9 mmol/L (-2 to +3); HCO3 30.3 mmol/L (22.0-26.0); PCO2 48.3 mmHg (35.0-45.0); PO2 72.2 mmHg (80.0-100.0); pH 7.416 (7.360-7.450); sO2 94.6 % (92.0-98.0)
[2018-05-05 05:41] LABS: HEMATOCRIT 35.2 % (37.0-47.0); HEMOGLOBIN 11.2 gm/dL (12.0-15.0); MCH 27.4 pg (26.0-34.0); MCHC 31.8 g/dL (28.0-37.0); MCV 86.3 fL (80.0-100.0); RBC 4.08 mil/uL (4.20-5.00); RDW 16.4 % (10.5-14.5); WBC 9.2 thou/uL (4.0-11.0)
--- NOTE | 2018-05-05 05:50 | NUR ---
END OF SHIFT SUMMARY: Pt has remained stable over night. Monitor remains a-fib, rates 90-115. Pt remains on Amiodorone gtt at 0.5 mg/min. Tolerating tube feeding well, residuals within parameters, no abdominal distention. Pt remains alert, responds appropriately, able to follow simple commands and nod yes/no to questions. O2 sat remains > 95% on FiO2 40%. Suctioning only small amounts of thick beige sputm after breathing treatments. Skin integrity remains intact. Urine output adequate.
[2018-05-05 06:01] LABS: ALBUMIN 2.4 g/dL (3.4-5.0); CALCIUM 9.5 mg/dL (8.5-10.1); CREATININE 1.1 mg/dL (0.6-1.0); PHOSPHORUS 2.9 mg/dL (2.5-4.9); POTASSIUM 3.7 mmol/L (3.5-5.1)
--- NOTE | 2018-05-05 16:27 | NUR ---
ASSUMED CARE OF PT AT 0700 THIS SHIFT. PT HAS BEEN COOPERATIVE, HAS DENIED ANY PAIN THIS SHIFT. PT TRIALED ON CPAP, BECAME TACHYPNIC AFTER 1 HR, SHOWING FATIGUE. PT HAS BEEN AWAKE, FOLLOWING COMMANDS. CURRENTLY RESTING COMFORTABLY IN ROOM. ASSESSMENTS ARE DOCUMENTED. PT HAS HAD VISITORS THIS SHIFT, EDUCATION WAS PROVIDED. PLAN OF CARE IS TO CONTINUE TO MONITOR PT CLOSELY AT THIS TIME.
[2018-05-06] VITALS (35 sets, daily range): BP systolic 106–143; BP diastolic 37–67
[2018-05-06 05:33] LABS: HEMATOCRIT 32.1 % (37.0-47.0); HEMOGLOBIN 10.4 gm/dL (12.0-15.0); MCH 27.8 pg (26.0-34.0); MCHC 32.4 g/dL (28.0-37.0); MCV 85.9 fL (80.0-100.0); RBC 3.74 mil/uL (4.20-5.00); RDW 16.2 % (10.5-14.5); WBC 7.4 thou/uL (4.0-11.0)
[2018-05-06 05:36] LABS: CALCIUM 9.3 mg/dL (8.5-10.1); CREATININE 0.9 mg/dL (0.6-1.0); POTASSIUM 3.4 mmol/L (3.5-5.1)
--- NOTE | 2018-05-06 06:16 | NUR ---
ASSUMED CARE @ 1900 05/05/18, PT ASSESSMENT AND VSS COMPLETE PER ICU PROTOCOL. PT APPEARS ALERT AND ORIENTED, PT ABLE TO FOLLOW COMMANDS AEB SQUEEZING HANDS AND WIGGLING TOES, PT ABLE TO NOD YES/NO APPROPRIATELY. PT INTUBATED ON THE VENT, NO SEDATION PRESENT, SATS IN THE HIGH 90'S, SEE PROCESS INTERVENTION FOR VENT SETTINGS. PT IN AFIB RHYTHM, AMIO GTT TURNED OFF LAST NIGHT PER ORDER ON THE EMAR, HR HAS MAINTAINED BETWEEN 70'S TO 80'S, CARDIZEM PO GIVEN Q6H PER ORDERS, PT AFEBRILE DURING THE SHIFT. TF RUNNING @ GOAL, PT TOLERATING, QUINONES IN PLACE GOP NOTED. RESTRAINTS IN PLACE, Q2H CHECKS AND DOCUMENTATION IN PLACE. BATH GIVEN DURING THIS SHIFT NO COMPLICATIONS NOTED. JB (SON) HERE DURING THE SHIFT TO VISIT. PLAN OF CARE- CONT TO MONITOR.
[2018-05-06 10:38] LABS: URINE BILIRUBIN NEGATIVE (Negative); URINE BLOOD TRACE (Negative); URINE CLARITY CLOUDY; URINE COLOR YELLOW; URINE GLUCOSE-RANDOM* NEGATIVE (Negative); URINE KETONES NEGATIVE (Negative); URINE NITRITE-REFLEX NEGATIVE (Negative); URINE PROTEIN (DIPSTICK) NEGATIVE (Negative); URINE UROBILINOGEN 0.2 E.U./dl (0.2-1.0)
[2018-05-06 10:39] LABS: URINE LEUKOCYTES-REFLEX 3+ (Negative)
[2018-05-06 10:53] LABS: BACTERIA-REFLEX >30 Many /HPF (None Seen); CASTS None Seen /LPF (None Seen); CRYSTALS None Seen /LPF (None Seen); SQUAMOUS 0-3 Few /LPF (0-3); URINE RBC 0-2 Rare /HPF (0-2)
--- NOTE | 2018-05-06 16:47 | NUR ---
FOLLOWING FOR DC PLANNING. CLINICAL INFO REVIEWED. SLOW WEANING AND POOR TOLERATION OF CPAP TRIALS. PER PULM NOTE, FAMILY REMAINS UNDECIDED ABOUT TRACH/PEG, BUT NOT READY FOR COMFORT CARE.
[2018-05-06 21:27] LABS: BE(vivo) 7.1 mmol/L (-2 to +3); HCO3 32.6 mmol/L (22.0-26.0); PCO2 50.2 mmHg (35.0-45.0); PO2 73.1 mmHg (80.0-100.0); sO2 94.9 % (92.0-98.0)
[2018-05-07] VITALS (51 sets, daily range): BP systolic 99–139; BP diastolic 42–82
[2018-05-07 06:06] LABS: CALCIUM 9.3 mg/dL (8.5-10.1); CREATININE 0.9 mg/dL (0.6-1.0); POTASSIUM 3.7 mmol/L (3.5-5.1)
--- NOTE | 2018-05-07 06:31 | NUR ---
ASSUMED CARE @ 1900 05/06/18, PT ASSESSMENT AND VSS COMPLETE PER ICU PROTOCOL. PT ALERT, ABLE TO FOLLOW SIMPLE COMMANDS. PT ON THE VENT, SEE PROCESS INTERVENTIONS FOR SETTINGS, SATS IN THE HIGH 90'S, EQUAL CHEST EXPANSION PRESENT. PT WAS ABLE TO TOLERATE CPAP LAST NIGHT, ABG SAMPLE COLLECTED, NO CRITICALS NOTED, WILL REPORT TO DAYSHIFT. PT IN AFIB, HR IN THE 60-90'S, CARDIZEM HELD AT MIDNIGHT DUE TO SLIGHT HYPOTENSION, PT AFEBRILE. TF RUNNING @ GOAL LOW- NO RESIDUALS NOTED, QUINONES IN PLACE, GOP. BATH COMPLETED DURING SHIFT, NO COMPLICATIONS NOTED. SON HERE DURING SHIFT TO VISIT. PLAN OF CARE- CONT TO MONITOR.
--- NOTE | 2018-05-07 10:48 | NUR ---
PT AWAKE THIS AM AND DTR ESSENCE AT BEDSIDE. MET WITH BOTH FOR SUPPORTIVE VISIT. ESSENCE STATES SHE IS WAITING TO SPEAK WITH DR. HANSON ABOUT PLAN OF CARE. COMMUNICATED TO DR. HANSON DTR WAITING TO SPEAK WITH HIM AND ASKED DR. HANSON TO ALSO CALL PT'S SON/DPOA, JB FOR CARE DECISIONS.
[2018-05-08] VITALS (44 sets, daily range): BP systolic 86–146; BP diastolic 39–72
[2018-05-08 04:43] LABS: HEMATOCRIT 33.1 % (37.0-47.0); HEMOGLOBIN 10.8 gm/dL (12.0-15.0); MCH 27.7 pg (26.0-34.0); MCHC 32.5 g/dL (28.0-37.0); MCV 85.4 fL (80.0-100.0); RBC 3.88 mil/uL (4.20-5.00); RDW 16.3 % (10.5-14.5); WBC 8.3 thou/uL (4.0-11.0)
[2018-05-08 04:48] LABS: CALCIUM 9.5 mg/dL (8.5-10.1); CREATININE 0.9 mg/dL (0.6-1.0); POTASSIUM 3.7 mmol/L (3.5-5.1)
--- NOTE | 2018-05-08 06:31 | NUR ---
ASSUMED CARE @ 1900 05/07/18, PT ASSESSMENTS AND VSS COMPLETE PER ICU PROTOCOL. PT ALERT AND ABLE TO FOLLOW COMMANDS WHEN STIMULATED. PT ON THE VENT, SEE PROCESS INTERVENTIONS FOR SPECIFICS, SATS IN THE HIGH 90'S, NO SIGNS OF RESPIRATORY DISTRESS. PT IN AFIB, HR 70-110'S, PT AFEBRILE DURING THE SHIFT. TF RUNNING @ GOAL, NO RESIDUALS NOTED, FLUSH IN PLACE PER ORDER. QUINONES IN PLACE, GOP NOTED.BATH GIVEN DURING SHIFT NOT COMPLICATIONS NOTED. SON HERE DURING THE SHIFT TO VISIT. PLAN OF CARE- CONT TO MONITOR.
--- NOTE | 2018-05-08 16:37 | NUR ---
FOLLOWING FOR DC PLANNING. CLINICAL INFO REVIEWED. MET WITH PT'S DTR-IN LAW BENTON BEGUM, SPOUSE OF DPOA SON JB. PER [place]ENT[place], FAMILY TO MEET WITH DR. HANSON TOMORROW BUT HAVE DECIDED ON TRACH/PEG. DISCUSSED FRAMEWORK OF LTACH FOR VENT WEANING AND FURTHER ACUTE CARE AND PROVIDED BROCHURES FOR PROMISE, SELECT AND CÉSAR. WILL FOLLOW TO ASSIST WITH COORDINATION OF DC NEEDS, AT PRESENT, PLAN FOR LTACT STAY AT DISCHARGE.
[2018-05-09] VITALS (42 sets, daily range): BP systolic 111–154; BP diastolic 40–87
[2018-05-09 04:53] LABS: HEMATOCRIT 30.5 % (37.0-47.0); MCH 27.9 pg (26.0-34.0); MCHC 32.7 g/dL (28.0-37.0); MCV 85.5 fL (80.0-100.0); RBC 3.57 mil/uL (4.20-5.00); RDW 16.2 % (10.5-14.5); WBC 8.4 thou/uL (4.0-11.0)
[2018-05-09 05:01] LABS: CALCIUM 9.4 mg/dL (8.5-10.1); CREATININE 0.8 mg/dL (0.6-1.0); MAGNESIUM 2.1 mg/dL (1.8-2.4); POTASSIUM 3.5 mmol/L (3.5-5.1)
--- NOTE | 2018-05-09 07:51 | NUR ---
ASSUMED CARE @ 1900 05/08/18. ASSESSMENTS AND VSS COMPLETE PER ICU PROTOCOL. PT ALERT ABLE TO FOLLOW COMMANDS, PT ON THE VENT SEE PROCESS INTERVENTIONS FOR SPECIFICS, SATS IN THE HIGH 90'S, PT IN AFIB RHYTHM, TF RUNNING @ GOAL, QUINONES IN PLACE, GOP NOTED. PT HAD AN UNEVENEFUL NIGHT, PLAN OF CARE, CONT TO MONITOR.
--- NOTE | 2018-05-09 09:07 | NUR ---
Continue to recommend vital high protein at goal 60ml/hr. Recommend readdress water flush needs with physician as pt with wt gain, need for diuresis and on 400ml water flushes every 6hr
[2018-05-09 13:53] LABS: HCO3 34.8 mmol/L (22.0-26.0); PO2 95.3 mmHg (80.0-100.0); pH 7.388 (7.360-7.450)
--- NOTE | 2018-05-09 19:00 | NUR ---
Pt has been awake and dozed intermittenly today. Pt has denied pain. No pain medication or sedation given this shift. Atrial fibrillation with controlled rate. Pt maintained on the ventilator. CPAP trial done today with results called to Dr Kaminski. Pt tolerated CPAP trial without distress. Dr Kaminski spoke to patient's son following CPAP trial. Plans discussed to proceed with tranch & PEG. Pt was returned to previous settings. Tube feedings infusing at 60 ml/hr per OG tube. No stools. Adequate urine output. No areas of skin breakdown observed. Report given to RN assuming care. Slow progress toward goals.
[2018-05-09 20:33] LABS: POTASSIUM 3.6 mmol/L (3.5-5.1)
--- NOTE | 2018-05-09 21:01 | NUR ---
Call was placed to Dr Lopez's office this morning to give consult. If calling from hospital prompt was to select #2 and message of consult was left on the answering machine. Message left to call back to confirm that consult was received since I was unable to reach a live person. I received no call back and no physician came by to see patient. Call placed to answering service at [phone] Lopez had indeed received the consult. Dr Lopez returned call and indicated that he had not received the consult and will see the patient tomorrow.
[2018-05-10] VITALS (31 sets, daily range): BP systolic 110–149; BP diastolic 45–70
[2018-05-10 06:04] LABS: HEMOGLOBIN 10.9 gm/dL (12.0-15.0); MCH 27.6 pg (26.0-34.0); MCV 86.3 fL (80.0-100.0); RBC 3.94 mil/uL (4.20-5.00); RDW 16.4 % (10.5-14.5); WBC 8.5 thou/uL (4.0-11.0)
[2018-05-10 06:17] LABS: CALCIUM 9.8 mg/dL (8.5-10.1); CREATININE 0.8 mg/dL (0.6-1.0); MAGNESIUM 2.1 mg/dL (1.8-2.4); POTASSIUM 3.5 mmol/L (3.5-5.1)
--- NOTE | 2018-05-10 07:51 | NUR ---
ASSUMED PT CARE AT 1900 WITH NO SIGN OF DISTRESS NOTED IN PT. PT IS ALERT, BUT IS INTUBATED. PT IS IN RESTRAINTS. APPROPRIATE DOCUMENTATTION CHARTED. SCHEDULED MEDS ADMINISTERED TO PATIENTS. VITAL SIGNS STABLE. PT IS STILL OMN AFIB ON THE MONITOR, NO FAMILY AT BEDSIDE. PT IS REPOSITIONED. DENIES ANY FURTHER NEEDS AT THIS TIME.
--- NOTE | 2018-05-10 18:19 | NUR ---
GOAL TO MAINTAIN MUSCLE STRENGTH WHILE INTUBATED AND ON BR. ACTIVE AND PASSIVE ROM INITIATED. WEANING TRIAL UNSUCCESSFUL. INCREASED RR AFTER 10 MINUTES AND LOW VOLUMES. PLAN FOR TRACH AND PEG TUBE PLACEMENT ON SATURDAY AFTERNOON OR SATURDAY, ELIQUIS ON HOLD. AFIB, RATE CONTROLLED. VITAL TUBE FEEDS CONTINUE AT 60/HR WITH NO RESIDUALS. SKIN INTACT
[2018-05-11] VITALS (14 sets, daily range): BP systolic 116–136; BP diastolic 43–74
--- NOTE | 2018-05-11 02:58 | NUR ---
PATIENT ALERT, ON ET 7 LEVEL 23 AT THE LIP, TO MV ON AC MODE FI02 40% RATE 12, TV 400, PEEP 5. LUNG SOUNDS COARSE TO DIMINISHED ON THE BASES. 02 SATS AT 97-99%. OBEYS COMMAND, SQUEEZES HANDS, SHAKE HEAD OR NOD WITH YES OR NO QUESTIONS. DENIES ANY PAIN. PUPILS 3 MM ESTRL, MOVES EXTREMITIES BUT GENERALIZED WEAKNESS. AFIB RATE CONTROLLED ON THE MONITOR, PULSES 2+/1+. GENERALIZED 2+ PITTING EDEMA ON ALL EXTREMITIES. CONTINUOUS FEEDING OF VITAL HP AT 60ML/HOUR (GOAL). NO RESIDUAL WAS NOTED. FREE WATER FLUSHES GIVEN ORDERED. QUINONES CATHETER DRAINING TO ADEQUATE YELLOWISH WITH SEDIMENTS NOTED. INTERDRY APPLID ON SKIN FOLDS. LEFT UPPER ARM TRIPLE LUMEN PICC DRAWS BLOOD AND FLUSHES WELL. BILATERAL SOFT LIMB RESTRAINTS ON. FALL PRECAUTION MAINTAINED. PATIENT REFUSES TO HAVE HER BEDBATH. ORAL CARE DONE. FF UP POC.
[2018-05-11 04:52] LABS: HEMATOCRIT 30.8 % (37.0-47.0); MCHC 32.5 g/dL (28.0-37.0); MCV 86.2 fL (80.0-100.0); RBC 3.57 mil/uL (4.20-5.00); RDW 16.3 % (10.5-14.5); WBC 6.8 thou/uL (4.0-11.0)
[2018-05-11 04:58] LABS: CALCIUM 9.3 mg/dL (8.5-10.1); CREATININE 0.8 mg/dL (0.6-1.0); MAGNESIUM 1.9 mg/dL (1.8-2.4); POTASSIUM 3.4 mmol/L (3.5-5.1)
--- NOTE | 2018-05-11 11:00 | NUR ---
DR FANG AND DR. MARTINEZ DISCUSSED UPCOMING PEG/TRACH. PT WILL HAVE TRACH 05/12 IN THE AFTERNOON AND PEG ON 05/13 IN THE ROOM. PERMITS HAVE BEEN SIGNED.
--- NOTE | 2018-05-11 15:03 | HC ---
[facility] [place] [address] CONSULTATION Name: YUNIOR BEGUM Room #: 245-P ADM IN M.R.#: [id number] Admission: 04/22/18 ������������������ Attend Phys: Cesar Flores MD Discharge: ������������������ Date of : 33 Report #: [id number] THIS REPORT FOR: //name// CC: Cesar Sanders DATE OF SERVICE: 05/08/2018 ENDOCRINE CONSULTATOIN: [facility] ICU Room: 245. Patient of Dr. Quinteros. This dictation will be done in a problem-oriented fashion. SUBJECTIVE: An 83-year-old white female admitted for acute respiratory insufficiency. Consultation was requested for abnormal thyroid function studies. The patient apparently has been on thyroid replacement for an extended period of time; however, she is unable to provide any useful medical information as she is sedated and intubated. In addition, there is no documentation of prior thyroid disease; however, there are elevated TSH from lab studies drawn in 2018. The patient apparently has previously been on 125 mcg of L-thyroxine replacement. However, I am not able to document this information that is in prior notes since hyperthyroxinemia was noted on recent lab. The dosage has apparently been dropped down to 50 mcg per day. Otherwise, thyroid evaluation is difficult to impossible due to current patient's clinical status. OBJECTIVE: LABORATORY DATA: Most recent thyroid function studies show a TSH of 0.062, free T4 was 1.2. PHYSICAL EXAMINATION: GENERAL: Well-nourished, well-developed 84-year-old white female who is sedated, restrained and intubated. VITAL SIGNS: Heart rate 95 and regular. The patient is afebrile, blood pressure 128/60. SKIN: Frail with decreased turgor. The thyroid is difficult to evaluate due to intubation and lack of patient cooperation; however, it does not appear to be significantly enlarged or nodular. Deep tendon reflexes seem to be diminished throughout, but this could be due to sedation. The remainder of the exam is euthyroid. ASSESSMENT: 1. Prior history of hypothyroidism, status unknown. [facility] [address] [place] [address] CONSULTATION Name: YUNIOR BEGUM Room #: 245-P ADM IN M.R.#: [id number] Admission: 04/22/18 ������������������ Attend Phys: Cesar Flores MD Discharge: ������������������ Date of : 33 Report #: [id number] 2. Recent hyperthyroxinemia. The patient does not have "subclinical hyperthyroidism" as previously diagnosed. Instead, she has hyperthyroxinemia due to replacement in excess of her metabolic needs. PLAN: 1. Will readjust replacement to 100 mcg of L-thyroxine per day, which hopefully over time will return thyroid function studies to normal levels. Further readjustment of dosage may be indicated 4-6 weeks from this time. 2. The patient has recently been on corticosteroids and is now apparently on amiodarone, which can acutely and chronically alter thyroid function studies and thyroid status and thyroid level will need to be monitored on a regular basis going forward. Thank you very much for this consultation. I will continue to follow the patient with you for evaluation and management of thyroid disease. ��������������������������������������������� <ELECTRONICALLY SIGNED> ���������������������������������������� By: Moustapha Espinosa MD ��������������������������������������������� 05/11/18 1503 [id number] Moustapha Espinosa MD /nt
--- NOTE | 2018-05-11 18:17 | NUR ---
END OF SHIFT NOTE. K REPLACED TODAY. DIURESED FROM LASIX. PLAN TRACH TOMMORROW NPO AT 0400. TOLORATING TUBE FEEDING.
[2018-05-12] VITALS (19 sets, daily range): BP systolic 97–155; BP diastolic 52–107
--- NOTE | 2018-05-12 04:00 | NUR ---
TUBE FEEDING ON HOLD NOW FOR TRACH PLACEMENT THIS AFTERNOONB
[2018-05-12 04:20] LABS: ANION GAP < 0 mmol/L (7-16); BUN 69 mg/dL (7-18); CALCIUM 9.1 mg/dL (8.5-10.1); CHLORIDE 101 mmol/L (98-107); CO2 40 mmol/L (21-32); CREATININE 0.8 mg/dL (0.6-1.0); GLUCOSE 211 mg/dL (74-106); POTASSIUM 3.7 mmol/L (3.5-5.1); SODIUM 140 mmol/L (136-145)
[2018-05-12 04:45] LABS: BE(vivo) 12.3 mmol/L (-2 to +3); HCO3 37.5 mmol/L (22.0-26.0); PCO2 51.9 mmHg (35.0-45.0); PO2 75.7 mmHg (80.0-100.0); pH 7.477 (7.360-7.450)
[2018-05-12 04:46] LABS: sO2 95.8 % (92.0-98.0)
[2018-05-12 05:12] LABS: HEMATOCRIT 31.1 % (37.0-47.0); HEMOGLOBIN 10.1 gm/dL (12.0-15.0); MCH 28.2 pg (26.0-34.0); MCHC 32.6 g/dL (28.0-37.0); MCV 86.6 fL (80.0-100.0); RBC 3.6 mil/uL (4.20-5.00); RDW 16.5 % (10.5-14.5); WBC 8.5 thou/uL (4.0-11.0)
--- NOTE | 2018-05-12 06:00 | NUR ---
REMAINS INTUBATED. FOLLOWS SIMPLE COMMANDS AND NODS HEAD APPROP TO ?S COMPLETE BED BATH GIVEN. TUBE FEEDING STOPPED AT 0400 FOR TRACH PLACEMENT TODAY. REMAINS IN AFIB WILL CONT TO MONITOR CLOSELY.
--- NOTE | 2018-05-12 14:52 | NUR ---
TRACH IN [place] TODAY AND PLAN FOR PEG TOMORROW. [facility], TRACH MUST BE IN FOR 7 DAYS AND BREATHING TRIALS NEED TO BE DONE BEFORE CAN REQUEST INSURANCE AUTH FOR LTACH TRANSITION.
--- NOTE | 2018-05-12 17:15 | NUR ---
PT IS ALERT AND FOLLOWS COMMANDS. LUNGS ARE DIMINISHED. NEW TRACH PLACED 8 SHILEY TODAY. A FIB ON THE VENTILATOR SPECIALIST. VS STABLE. QUINONES TO DD WITH YELLOW URINE PRESENT. BILATERAL WRIST RESTRAINTS IN PLACE. TURN Q 2HOURS WITH ASSIST. FAMILY AT BEDSIDE TODAY FOR SUPPORT. WILL CONTINUE TO MONITOR AND ASSESS PER NURSING AT THIS TIME. WILL PLAN TO PLACE PEG TUBE TOMORROW IN THE AM CONSENT ON CHART
[2018-05-13] VITALS (67 sets, daily range): BP systolic 112–183; BP diastolic 32–116
--- NOTE | 2018-05-13 06:00 | NUR ---
REMAINS TRACHED AND VENTED. AWAKE FOLLOWS SIMPLE COMMANDS. NODS APPROP TO QUESTIONS DENIES PAIN. MOD AMT BLOODY TRACH DRAINAGE AT SITE. REMAINS IN AFIB RATE LUNGS SLIGHTLY COARSE IN UPPER LOBES. NPO FOR PEG TUBE PLACEMENT THIS Am. ALL CONSENTS SIGNED. BATHED. REPOSITIONED. SKIN INTACT. WILL CONT TO MONITOR CLOSELY.
[2018-05-13 06:15] LABS: HEMATOCRIT 31.1 % (37.0-47.0); HEMOGLOBIN 10.3 gm/dL (12.0-15.0); MCH 28.3 pg (26.0-34.0); MCHC 33.2 g/dL (28.0-37.0); MCV 85.3 fL (80.0-100.0); RBC 3.64 mil/uL (4.20-5.00); WBC 8.9 thou/uL (4.0-11.0)
[2018-05-13 06:46] LABS: CREATININE 0.7 mg/dL (0.6-1.0); POTASSIUM 3.9 mmol/L (3.5-5.1)
[2018-05-13 12:08] LABS: BE(vivo) 17.4 mmol/L (-2 to +3); HCO3 43.6 mmol/L (22.0-26.0); PCO2 59.6 mmHg (35.0-45.0); PO2 83.4 mmHg (80.0-100.0); pH 7.482 (7.360-7.450); sO2 96.6 % (92.0-98.0)
--- NOTE | 2018-05-13 18:15 | NUR ---
VSS, PEG TUBE PLACED TODAY ABLE TO USE FOR MEDICATIONS, WILL CHECK PLACEMENT TOMORROW, TRACH AND VENTED, SALINE LOCKED, TRACH PACKED DUE TO BLEEDING, TRACH CARE COMPLETED, Q2 TURN AND ORAL CARE. WILL CONTINUE TO MONITOR POC
[2018-05-13 21:21] LABS: BE(vivo) 15.1 mmol/L (-2 to +3); HCO3 40.5 mmol/L (22.0-26.0); PCO2 53.5 mmHg (35.0-45.0); PO2 74.7 mmHg (80.0-100.0); pH 7.497 (7.360-7.450); sO2 95.8 % (92.0-98.0)
[2018-05-14] VITALS (25 sets, daily range): BP systolic 95–140; BP diastolic 39–74
--- NOTE | 2018-05-14 05:06 | NUR ---
PT TRACH ON VENT. SATS ABOVE 90% ON VENT, NO SIGNS OF DISTRESS NOTED DURING THE NIGHT. DENIED PAIN. VSS. AFEBRILE. MEDS GIVEN IN PEG TUBE. OUTPUT NOTED FROM QUINONES. SON AT BEDSIDE DURING THE NIGHT. WILL CONTINUE TO MONITOR PT.
--- NOTE | 2018-05-14 12:23 | NUR ---
TRACH AND PEG IN PLACE. MET WITH DTR ESSENCE TO DO F/U DISCUSSION ON LTAC AND PROVIDED HER WITH OPTIONS. SHE INDICATES [facility] IS THE BEST CHOICE GEOGRAPHICALLY FOR ALL FAMILY AND AGREEABLE TO REFERRAL. ENCOURAGED ESSENCE TO [facility] AND OTHER LTACHS. UPDATE TO ZULEYMA FROM [facility] WHO WILL EVAL IN AM AND SUBMIT AUTH REQUEST TO [facility] FOR HOPEFUL TRANSITION TO LTACH PENDING AUTH EARLY NEXT WEEK. 05/19/18 WILL BE DAY 7 WITH YOHAN. CA ROCA AND ARCHITECTURAL SALES CONSULTANT UPDATED.
[2018-05-15] VITALS (20 sets, daily range): BP systolic 104–150; BP diastolic 29–74
[2018-05-15 05:39] LABS: HEMOGLOBIN 10.1 gm/dL (12.0-15.0); MCH 28.1 pg (26.0-34.0); MCHC 32.7 g/dL (28.0-37.0); RBC 3.61 mil/uL (4.20-5.00); RDW 16.5 % (10.5-14.5); WBC 7.7 thou/uL (4.0-11.0)
[2018-05-15 05:47] LABS: CALCIUM 8.7 mg/dL (8.5-10.1); CREATININE 0.9 mg/dL (0.6-1.0); POTASSIUM 3.2 mmol/L (3.5-5.1)
--- NOTE | 2018-05-15 06:36 | NUR ---
AO, FOLLOW COMMANDS. NODS TO QUESTIONS. COMPLAINED ABOUT PAIN, MEDICATED. AFEBRILE. VSS. HR IN THE 130S DURING THE NIGHT, ONE DOSE OF LOPRESSOR GIVEN. TOLERATING VENT SETTINGS. TF ONGOING, CURRENTLY AT GOAL OF 60. FREQUENT TURNS AND ORAL CARE. URINE OUTPUT NOTED. POTASSIUM BEING REPLACED THIS AM. NO COMPLAINS PRESENTLY. WILL CONTINUE TO MONITOR.
--- NOTE | 2018-05-15 09:37 | HC ---
[facility] [place] [address] CONSULTATION Name: YUNIOR BEGUM Room #: 245-P [facility] IN M.R.#: [id number] Admission: 04/22/18 ������������������ Attend Phys: Cesar Flores MD Discharge: ������������������ Date of : 31 Report #: [id number] THIS REPORT FOR: //name// CC: Cesar Sanders DATE OF SERVICE: 04/30/2018 REASON FOR CONSULTATION: Low urine output. REASON FOR PRESENTATION: Shortness of breath. HISTORY OF PRESENT ILLNESS: The patient is currently intubated and not able to provide me with the history. She was brought in from custodial with shortness of breath. This has progressed. This was associated per the notes with hypoxemia. She has severe COPD. She has had numerous hospitalizations in the past. She required intubation. Cardiology was involved with her care as she went into AFib and RVR. In the last 24 hours, the patient had a decline in her urine output. I am being consulted to manage her renal-related issues. PAST MEDICAL HISTORY: 1. Severe COPD. 2. Respiratory failure. 3. Hypothyroidism. 4. Hernia surgery. 5. Bipolar disorder. 6. Obstructive sleep apnea. 7. Mild aortic stenosis. 8. AFib. 9. CVA. REVIEW OF SYSTEMS: Unobtainable given the patient's current mental status. FAMILY HISTORY: I am not able to obtain given the patient's mental status. Unobtainable. SOCIAL HISTORY: She was brought from a custodial. No reported drug or alcohol abuse. HOME MEDICATIONS: 1. Furosemide. 2. Levothyroxine. 3. Eliquis. PHYSICAL EXAMINATION: GENERAL: She is intubated, severe obesity. [facility] [address] [place] [address] CONSULTATION Name: YUNIOR BEGUM Room #: 245-P [facility] IN M.R.#: [id number] Admission: 04/22/18 ������������������ Attend Phys: Cesar Flores MD Discharge: ������������������ Date of : 31 Report #: [id number] VITAL SIGNS: Temperature 36.9, pulse is 106, blood pressure is 103/70. HEAD AND NECK: No jugular venous distention. ET tube is in place. CHEST: Decreased air entry bilaterally. CARDIOVASCULAR: No rub. ABDOMEN: Soft. LOWER EXTREMITIES: Extensive edema. Upper extremities extensive edema. LABORATORY DATA: Reviewed. Sodium is 148. Creatinine is 1.1. White blood cell count is 8.3. Blood gas with a pH of 7.4. Chest x-ray, right-sided effusion. Mild pulmonary edema. ASSESSMENT, IMPRESSION AND PLAN: 1. Respiratory failure. 2. Diastolic heart failure. 3. Hypernatremia. 4. Atrial fibrillation. 5. Hypothyroidism. 6. She is stable from the renal perspective, renal function is excellent. Urine output has picked up. 7. Continue diuresis. 8. Add free water for her hypernatremia. ��������������������������������������������� <ELECTRONICALLY SIGNED> ���������������������������������������� By: Jhon Butler MD ��������������������������������������������� 05/15/18 0937 [id number] Jhon Butler, /nt
[2018-05-16] VITALS (24 sets, daily range): BP systolic 90–141; BP diastolic 39–70
[2018-05-16 05:27] LABS: HCO3 39.5 mmol/L (22.0-26.0); PCO2 54.8 mmHg (35.0-45.0); pH 7.476 (7.360-7.450); sO2 96.1 % (92.0-98.0)
--- NOTE | 2018-05-16 05:37 | NUR ---
PT AO, MOUTHS WORDS AND NODS FOR RESPONSE. VSS. AFEBRILE. TOLERATING VENT SETTINGS. MEDICATED FOR PAIN. TOLERATING TF, NO BM DURING THE NIGHT. QUINONES IN PLACE, OUTPUT NOTED. FREQUENT TURNS AND ORAL CARE. SLOWLY PROGRESSING TOWARDS GOALS. WILL CONTINUE TO MONITOR.
[2018-05-16 06:30] LABS: CALCIUM 9.3 mg/dL (8.5-10.1); CREATININE 0.8 mg/dL (0.6-1.0); POTASSIUM 3.5 mmol/L (3.5-5.1)
--- NOTE | 2018-05-16 08:44 | P ---
[facility] [place] [address] PROCEDURE REPORT Name: YUNIOR BEGUM Room #: 245-P [facility] IN M.R.#: [id number] Admission: 04/22/18 ������������������ Attend Phys: Cesar Flores MD Discharge: ������������������ Date of : 31 Report #: [id number] THIS REPORT FOR: //name// CC: Cesar Sanders DATE OF SERVICE: 05/13/2018 PROCEDURE: Upper endoscopy with percutaneous endoscopic gastrostomy tube placement in the ICU at [facility]. INDICATION FOR THE PROCEDURE: Protein calorie malnutrition and inability to wean from the ventilator. DESCRIPTION OF PROCEDURE: Indications, risks, benefits were discussed with the patient and consent obtained including risk of perforation and the patient agreed to proceed. Medication was monitored anesthesia care. Please see anesthesiologist's report for the patient's ASA classification. The upper adult endoscope was advanced through the mouth into the esophagus all the way to the second portion of the duodenum and then withdrawn carefully with careful inspection. The esophagus was normal. There was mild gastritis in the antrum and the duodenum was normal. Transillumination was successful and a 20-Lao gastrostomy tube was placed. An incision was made. The gastrostomy tube was pulled through and the bumper was placed at 4 cm. Estimated blood loss was 3 mL. The procedure was then aborted. RECOMMENDATIONS: To use PEG tube now for water and medications and to start tube feeds in 6 hours per nutrition recommendations. GI will check PEG tube tomorrow. The patient was recovered per established procedures and protocols. ��������������������������������������������� <ELECTRONICALLY SIGNED> ���������������������������������������� By: Aramis Hector MD ��������������������������������������������� 05/16/18 0844 [id number] 1820 Aramis Hector MD /nt
--- NOTE | 2018-05-16 17:30 | NUR ---
PT DOING DAILY CPAP TRIALS. LOOKING FOR TRANSITION TO LTAC AT BEGINING OF NEXT WEEEK. SPOKE WITH JENNIFER AT [facility] TODAY. SHE STATES DTR ESS[facility] WILLS. [facility]EPTS AND WILL PRIVATE ROOM PER FAMILY REQUEST. MESSAGE LEFT FOR DTR TO CONFIRM LTAC CHOICE OF [facility].
[2018-05-17 00:57] VITALS: BP 109/49
[2018-05-17 01:58] VITALS: BP 106/39
[2018-05-17 02:57] VITALS: BP 104/43
[2018-05-17 03:57] VITALS: BP 106/47
[2018-05-17 05:58] LABS: BE(vivo) -3.3 mmol/L (-2 to +3); HCO3 27.4 mmol/L (22.0-26.0); PO2 68.3 mmHg (80.0-100.0); sO2 86.3 % (92.0-98.0)
[2018-05-17 05:59] LABS: pH 7.131 (7.360-7.450)
--- NOTE | 2018-05-17 08:09 | NUR ---
CODE BLUE NOTE: AT 0400 Respiratory did routine tracheostomy care on pt but had difficulty suctioning patient and acheiving adequate volumes on ventilator. Tracheostomy has been positional intermittently according to RT. At 0445 pt was turned to do pericare and be repositioned. Tracheostomy dislogded again and pt began to have subq air in face up to eyebrows. Rapid Response called first and then pt went asystole at 0450 and Code BLue was called. See code record for further information. ROSC was obtained at 0529 and pt was started cooling for hypothermia protocol. Pt went asystole again at 0622 and second Code BLue called. See code record for further information. Patient's daughter was at bedside for approximately last 15 minutes of code, and at 0657 asked staff to stop resuccitation efforts. Pt was pronounced by Dr. Claudia Lujan who was at bedside.
--- NOTE | 2018-05-19 16:19 | NUR ---
LATE NOTE............ WENTINTO PATIENT ROOM TO PERFORM VENT CHECK,TREATMENT AND ALSO TRACH CARE. DURING TRACH CARE PATIENT INLINE T-PIECE AND INTER-CANULA WAS CHANGE VENT CURCUIT DISCONNECT LESS THAN 10 SECONDS. WHEN RECONNECTED TO VENT RT NOTICE PATIENT NOT RETURNING HER FULL VOLUMES FROM THE VENT. PATIENT TRACH WAS ALREADY NOTICE TO BE POSITIONAL UPON THE BEGINING OF SHIFT WHEN INTIAL ASSESSMENT WAS MADE BECAUSE THERE WAS A WASH CLOTH ROLLED UNDER TRACH TO KEEP IN PLACE. I SPENT MORE THAN 25 MINS WITH PATIENT AFTER TRACH CARE WAS DONE TO ENSURE THAT SHE WAS RECEIVING HER VOLUMES AND RETURNS. NO SUBCUTANEOUS NOTICE UPON LEAVING THE ROOM. I SPOKE WITH PATIENT'S NURSE JENNI ADVISED PATIENT TRACH WAS POSITIONAL. NURSE STATED SHE WAS AWARE THERAPIST THAN CHECKED ON ANOTHER PATIENT NEXT DOOR AND LATER LEFT ICU. ABOUT 20 MINUTES LATER RN DONNA CALL ASKING IF I WAS CLOSE, I STATED I HAD RETURN TO RT OFFICE FOR SUPPLIES I ASK WHY SHE STATED THEY WERE TURNING AND CHANGING PATIENT AND THEY BELIEVE HER TRACH HAD BEEN DISLODGE. I TOLD THEM I WAS ON MY WAY. WHEN I ENTER THE ROOM PATIENT WAS NOTICED TO HAVE A LARGE AMOUNT OF SUB Q. I IMMEDIATELY ASK THE NURSE'S TO CALL FOR ANOTHER RT ASSISTANCE AND VERY QUICKLY ASK FOR A RAPID TO BE CALLED AND WITH IN SECOND PULLED THE CODE BUTTON. DURING CODE THE CONCERN WAS TO ESTABLISH AN AIRWAY USING THE GLADE SCOPE THERE WASNT ANY ANATOMY TO BE SEEN BED SIDE TRACH WAS USED BUT DIDNT FIT CURRENT ANATOMY. ET TUBE PLACEMENT WAS DIFFCULT FOR AN ORAL INTABATION. SIZE 6. ET TUBE PLACED IN TRACHEA. DURING THIS TIME WAS LOST PATIENTS PULSE REPEATED CPR STARTED EACH TIME.
== END 2018-05-17 07:00 | DRG 4 ==
LOC: ER 18:10 → EROBS 19:28 → ICU 19:28
PROVIDERS: Emergency Medicine; Hospitalist; Internal Medicine; Internal Medicine Pulmonary Disease; Nurse Practitioner; Nurse Practitioner Acute Care; Pediatrics; ADMIT Hospitalist
PROC: 5A09357 Assistance with Respiratory Ventilation, Less than 24 Consecutive Hours, Continuous Positive Airway Pressure (ICD-10-PCS; principal; 2018-04-23)
PROC: 02HV33Z Insertion of Infusion Device into Superior Vena Cava, Percutaneous Approach (ICD-10-PCS; 2018-04-24)
PROC: 5A1955Z Respiratory Ventilation, Greater than 96 Consecutive Hours (ICD-10-PCS; 2018-04-24)
PROC: 5A09357 Assistance with Respiratory Ventilation, Less than 24 Consecutive Hours, Continuous Positive Airway Pressure (ICD-10-PCS; 2018-04-24)
PROC: 0BH17EZ Insertion of Endotracheal Airway into Trachea, Via Natural or Artificial Opening (ICD-10-PCS; 2018-04-24)
PROC: 0BH17EZ Insertion of Endotracheal Airway into Trachea, Via Natural or Artificial Opening (ICD-10-PCS; 2018-04-25)
PROC: 0B110F4 Bypass Trachea to Cutaneous with Tracheostomy Device, Open Approach (ICD-10-PCS; 2018-05-12)
PROC: 0BJ08ZZ Inspection of Tracheobronchial Tree, Via Natural or Artificial Opening Endoscopic (ICD-10-PCS; 2018-05-13)
PROC: 0DH63UZ Insertion of Feeding Device into Stomach, Percutaneous Approach (ICD-10-PCS; 2018-05-13)
PROC: 5A12012 Performance of Cardiac Output, Single, Manual (ICD-10-PCS; 2018-05-17)
DX: J96.21 Acute and chronic respiratory failure with hypoxia (principal); I50.33 Acute on chronic diastolic (congestive) heart failure; J44.1 Chronic obstructive pulmonary disease with (acute) exacerbation; Z68.42 Body mass index [BMI] 45.0-49.9, adult; E87.0 Hyperosmolality and hypernatremia; F31.30 Bipolar disorder, current episode depressed, mild or moderate severity, unspecified; E87.1 Hypo-osmolality and hyponatremia; I13.0 Hypertensive heart and chronic kidney disease with heart failure and stage 1 through stage 4 chronic kidney disease, or unspecified chronic kidney disease; E46 Unspecified protein-calorie malnutrition; J96.22 Acute and chronic respiratory failure with hypercapnia; I46.9 Cardiac arrest, cause unspecified; N18.9 Chronic kidney disease, unspecified; I48.0 Paroxysmal atrial fibrillation; E87.6 Hypokalemia; M25.511 Pain in right shoulder; I48.2 Chronic atrial fibrillation; E03.9 Hypothyroidism, unspecified; F41.9 Anxiety disorder, unspecified; I35.0 Nonrheumatic aortic (valve) stenosis; M62.84 Sarcopenia; E53.8 Deficiency of other specified B group vitamins; I27.23 Pulmonary hypertension due to lung diseases and hypoxia; E66.01 Morbid (severe) obesity due to excess calories; D64.9 Anemia, unspecified; E05.90 Thyrotoxicosis, unspecified without thyrotoxic crisis or storm; G47.33 Obstructive sleep apnea (adult) (pediatric); Z90.49 Acquired absence of other specified parts of digestive tract; Z87.81 Personal history of (healed) traumatic fracture; Z86.73 Personal history of transient ischemic attack (TIA), and cerebral infarction without residual deficits; Z79.01 Long term (current) use of anticoagulants; Z79.899 Other long term (current) drug therapy; Z88.0 Allergy status to penicillin; Z88.2 Allergy status to sulfonamides; Z82.49 Family history of ischemic heart disease and other diseases of the circulatory system; Z83.3 Family history of diabetes mellitus
CPT/HCPCS: 10078; 10203; 27000; 50101; 50517; 50942; 52287; 56524; 56526; 56639; 57006; 62110; 62900